=== PATIENT | female | born 1995 | race Caucasian/White ===

== ENCOUNTER → 2022-10-05 | Outpatient (CLI) | payer OTHER, SELFPAY ==
[2022-10-09 16:19] LABS: HPV Reflexed? NOT INDICATED
== END | disposition home or self-care (01) ==
LOC: LABSPEC 11:40
PROVIDERS: Visit Provider Student in an Organized Health Care Education/Training Program
DX: Z12.4 Encounter for screening for malignant neoplasm of cervix (principal)
CPT/HCPCS: 88175; G0145

== ENCOUNTER → 2022-10-16 | Outpatient (CLI) | payer OTHER, SELFPAY ==
[2022-10-16 12:46] LABS: Anion Gap 9 (5-15); BUN 11 mg/dL (7-18); BUN/Creat Ratio 13.4 RATIO (10-20); Calcium,Total 9.4 mg/dL (8.5-10.1); Chloride 105 mmol/L (98-107); Cholesterol 170 mg/dL (200); Creatinine, Serum 0.82 mg/dL (0.55-1.02); EST Glomerular Filtration Rate 90 mL/min (>60); Est Glom Filt Rate - Afr Amer 108 mL/min (>60); Glucose 95 mg/dL (74-106); High Density Lipoprotein 46 mg/dL; Potassium 3.7 mmol/L (3.5-5.1); Sodium Level 139 mmol/L (136-145); Triglycerides 141 mg/dL; Very Low Density Lipoprotein 28 mg/dL (5-40)
== END | disposition home or self-care (01) ==
LOC: MTLAB 09:39
PROVIDERS: PCP Family Medicine; Referring Provider Family Medicine; Visit Provider Family Medicine
DX: Z00.00 Encounter for general adult medical examination without abnormal findings (principal)
CPT/HCPCS: 36415; 80048; 80061

== ENCOUNTER → 2023-08-03 | Outpatient (CLI) | payer OTHER, SELFPAY ==
--- NOTE | 2023-08-03 12:06 | RAD_ITS ---
STUDY: X-RAY - LEFT SHOULDER REASON FOR EXAM: Female, 28 years old. Shoulder pain. Follow-up TECHNIQUE: view(s) of the shoulder. COMPARISON: None. FINDINGS: Normal glenohumeral articulation. Normal acromioclavicular joint. Normal acromion. Normal humeral head and visualized proximal humerus. Normal soft tissues. Normal visualized pulmonary apex. RAD/Shoulder min 2 Views IMPRESSION: Normal x-ray examination of the shoulder. Electronically Signed: Jose Juan Davis MD at 12:44 EST ,
== END | disposition home or self-care (01) ==
PROVIDERS: PCP Family Medicine; Referring Provider Nurse Practitioner Family; Visit Provider Nurse Practitioner Family
DX: S49.90XA Unspecified injury of shoulder and upper arm, unspecified arm, initial encounter (principal)
CPT/HCPCS: 73030

== ENCOUNTER 2024-01-02 19:07 | Emergency (ER) | payer OTHER, SELFPAY ==
[2024-01-02 19:07] VITALS: BP 119/93; PULSE 53; RESP 18; TEMP 36.3; O2SAT 100; BMI 30.9
[2024-01-02] MEDS: Doxycycline 100 MG CAPSULE 200 MG PO (19:15)
--- NOTE | 2024-01-02 19:21 | EDS_ITS ---
HPI History of Present Illness Chief Complaint: Wound Informant: patient Narrative Narrative: Present for evaluation noted rash right inner thigh 1 hour prior to arrival. Has been outdoors last few days with fishing. States it itches. She has no fevers no myalgias. No known ticks seen. Prior similar symptoms: No PFSH PFSH Medical History Sinus tachycardia (08/09/17) Left shoulder pain Home Medications ?Medication ?Instructions ?Recorded ?Last Taken ?Type nadolol 20 mg tablet 20 mg PO ONCE 08/03/23 Unknown History norgestimate 0.18 mg/0.215 mg/0.25 1 tab PO DAILY #84 tabs 12/29/23 Unknown Rx mg-ethinyl estradiol 25 mcg tablet ([id number]) Allergy/AdvReac Type Severity Reaction Status Date / Time No Known Allergies Allergy Verified 12/29/23 08:34 Social History Smoking Status: Never smoker alcohol intake: current alcohol intake frequency: holidays/special occasions only substance use type: does not use caffeine: No what type of physical activity do you participate in: other details: crossfit frequency: 5-6 times per week seatbelt use: always do you feel safe at home: Yes additional social history: [facility] ED Constitutional Constitutional ED: Denies chills, fever(s) or sweats Integumentary Reports rash and wounds Neurologic Neurologic: Denies paresthesias or weakness EXAM Physical Exam Const Vital Signs: 01/02/24 19:07 Temperature 97.3 F L Temperature Source Temporal Pulse Rate 53 L Respiratory Rate 18 Blood Pressure 119/93 H Blood Pressure Mean 101 Pulse Ox 100 Oxygen Delivery Method Room Air Positive well nourished and well developed General Appearance ED: well developed and NAD HEENT Reports moist mucous membranes normocephalic and atraumatic Eyes EOMs intact bilaterally General Eye ED: Yes normal appearance of both eyes Neck General: Negative for tenderness Chest Wall Chest: Negative for tenderness Resp normal respiratory effort and normal air movement Effort and Inspection: symmetric chest movement; Negative for respiratory distress Cardio regular rate, regular rhythm and no murmurs Peripheral Pulses: pulses 2+ throughout GI normal to inspection, nondistended, normoactive bowel sounds and non-tender Palpation: Negative for guarding or rebound tenderness present Extremity General Extremety ED: Negative for edema or tenderness General Extremity: Negative for edema Neuro oriented x3 and no sensory deficits noted Sensorium / Orientation: awake and alert Skin Skin Narrative: Right lower extremity: Inner mid thigh noted target lesion rash. No indurations no fluctuance or drainage. No streaking. MDM MDM MDM Narrative Medical decision making narrative: Interventions / MDM: Differential diagnosis: Target rash Diagnosis considered but do not suspect: No clinical contact dermatitis My EKG interpretation: N/A Imaging independently reviewed and interpreted by myself: N/A External documents reviewed: N/A Test considered but not ordered:N/A ED course: Patient presenting with target lesion rash noted 1 hour prior to arrival. No systemic symptoms. Patient covered empirically for tick bites. 2 of milligrams p.o. Doxy x 1. Discussed monitoring for systemic symptoms. Outpatient follow with her PCP. Re-evaluation: stable Disposition discussed with patient/family/significant other: Patient and significant other Case discussed with consulting clinician: N/A This note was generated with [employer] dictation software. It may contain incorrect words, spelling, and punctuation that were not noted in checking the note before signing. Discharge Plan Triage Chief Complaint: Wound ED Provider: Rajan Keita Dx/Rx/DC Orders Clinical Impression: Rash, Target rash Instructions: ED Tick Bite, Antibiotic Treatment Prescriptions: No Action nadolol 20 mg tablet 20 mg PO ONCE norgestimate-ethinyl estradiol [[id number]] 0.18/0.215/0.25 mg-25 mcg tablet 1 tab PO DAILY Qty: 84 3RF Primary Care Provider: Sandip Cleary Referrals: Sandip Cleary MD [Primary Care Provider] - 1 Week Activity Restrictions/Additional Instructions: You have classic target lesion and you are outdoors. You are covered prophylactically for tick bite status post 200 mg of doxycycline. Monitor for symptoms. Follow-up with your doctor. Print Language: Mohawk Disposition Disposition: Home, Self Care
[2024-01-02 19:26] VITALS: BP 122/87; PULSE 66; RESP 18; TEMP 36.1; O2SAT 99
[2024-01-05 17:07] LABS: Lyme Scn Total Ab w/Rflx Negative (Negative)
== END 2024-01-02 19:30 | disposition home or self-care (01) ==
LOC: ED 19:30
PROVIDERS: Emergency Medicine; Emergency Provider Emergency Medicine; PCP Family Medicine; Visit Provider Emergency Medicine
DX: R21 Rash and other nonspecific skin eruption (principal)
CPT/HCPCS: 86618; 99282

== ENCOUNTER → 2025-03-09 | Outpatient (CLI) | payer BC, SELFPAY ==
[2025-03-12 21:07] LABS: Chlamydia By Nucleic Acid AMP Negative (Negative); Gonococcus By Nucleic Acid AMP Negative (Negative)
== END | disposition home or self-care (01) ==
LOC: LABSPEC 13:57
PROVIDERS: PCP Family Medicine; Referring Provider Obstetrics & Gynecology; Visit Provider Obstetrics & Gynecology
DX: O09.90 Supervision of high risk pregnancy, unspecified, unspecified trimester (principal); Z3A.00 Weeks of gestation of pregnancy not specified
CPT/HCPCS: 87086; 87088; 87491; 87591

== ENCOUNTER → 2025-04-06 | Outpatient (CLI) | payer BC, SELFPAY ==
[2025-04-06 12:16] LABS: Hematocrit 36.8 % (37-47); Hemoglobin 13.1 g/dL (12.0-15.0); Immature Granulocytes Count 0.020 X10^3/uL (0.0-0.0); Mean Corp Hgb Conc 35.6 g/dL (32-36); Mean Corpuscular Volume 85.0 fL (81-99); Mean Platelet Vol. 9.8 fl (6.2-12.0); NRBC Flagged by Analyzer 0 % (0-5); Platelet Count 186 K/mm3 (150-450); RBC Distribution Width CV 11.9 % (11.6-14.6); RBC Distribution Width SD 37.2 fl (35.1-43.9); Red Blood Count 4.33 M/mm3 (4.2-5.4); White Blood Count 7.4 K/mm3 (4.4-11.0)
[2025-04-06 14:02] LABS: HIV Nonreactive (Nonreactive); Hepatitis B Surface Antigen Nonreactive (Nonreactive); Hepatitis C Antibody Nonreactive (Nonreactive); Syphilis Antibodies Nonreactive (Nonreactive)
== END | disposition home or self-care (01) ==
PROVIDERS: Obstetrics & Gynecology; PCP Family Medicine; Visit Provider Advanced Practice Midwife
DX: O09.90 Supervision of high risk pregnancy, unspecified, unspecified trimester (principal); Z3A.00 Weeks of gestation of pregnancy not specified; O99.210 Obesity complicating pregnancy, unspecified trimester
CPT/HCPCS: 36415; 83036; 85025; 86703; 86762; 86780; 86803; 86850; 86900; 86901; 87340

== ENCOUNTER 2025-06-01 12:10 | Outpatient (CLI) | payer BC, SELFPAY ==
--- NOTE | 2025-06-01 12:19 | US_ITS ---
PROCEDURE: OB ANATOMY W/ TRANSVAGINAL 06/01/2025 REASON FOR EXAM: ANATOMY TECHNIQUE: Procedure Code: [id number] Modality: US Procedure: OB ANATOMY W/ TRANSVAGINAL COMPARISON: None FINDINGS Number: 1 Position: Vertex Placental Position: Posterior and not low-lying Placental Abnormalities: No evidence of previa. DIMENSIONS: Biparietal Diameter: 5 cm: 21 weeks and 2 days: 64 percentile/ Head Circumference: 19 cm: 21 weeks and 2 days: 60 percentile/ Abdominal Circumference: 16.3 cm: 21 weeks and 3 days/61 percentile Femur Length: 3.4 cm: 20 weeks and 4 days: 33rd percentile./ ESTIMATED WEIGHT: 3099 g plus/-60 g ESTIMATED WEIGHT PERCENTILE (24+ weeks): 58 ESTIMATED GESTATIONAL AGE: Baseline: 20 weeks and 6 days By Ultrasound: 21 weeks and 0 days ESTIMATED DATE OF DELIVERY: Baseline: October 13, 2025 By Ultrasound: October 12, 2025 BIOPHYSICAL ASSESSMENT: Amniotic Fluid Volume: 3.0 cm Amniotic Fluid Index: Within normal limits. (8-24 cm normal range) Cardiac Motion: 160 beats per minute (average) Trunk and Limb Motion: Present. MATERNAL ANATOMY: Adnexa: Neither maternal ovary is successfully identified. Cervical Length (if measured): 5.3 cm ANATOMY: Spine: Unremarkable Cranium: Unremarkable Cerebellum: Unremarkable Cisterna Magna: Unremarkable Cavum Septum Pellucidi: Unremarkable Lateral Ventricles: Unremarkable Choroid Plexus: Unremarkable Midline Falx: Unremarkable Nuchal Fold: Unremarkable Upper Lip: Unremarkable Heart: Unremarkable Ventricular Outflow Tracts: Unremarkable Stomach: Unremarkable Kidneys: Unremarkable Bladder: Unremarkable Umbilical Cord: Unremarkable Extremities: Unremarkable US/OB Anatomy w/ Transvaginal IMPRESSION: Single live intrauterine gestation with a mean gestational age of 21 weeks and 0 days. Reading Location: [facility]
[2025-06-01 15:52] LABS: Hematocrit 35.0 % (37-47); Hemoglobin 12.1 g/dL (12.0-15.0); Immature Granulocytes Count 0.030 X10^3/uL (0.0-0.0); Mean Corp Hgb Conc 34.6 g/dL (32-36); Mean Corpuscular Volume 88.4 fL (81-99); Mean Platelet Vol. 10.4 fl (6.2-12.0); NRBC Flagged by Analyzer 0 % (0-5); Platelet Count 222 K/mm3 (150-450); RBC Distribution Width CV 13.3 % (11.6-14.6); RBC Distribution Width SD 43.0 fl (35.1-43.9); Red Blood Count 3.96 M/mm3 (4.2-5.4); White Blood Count 8.5 K/mm3 (4.4-11.0)
[2025-06-01 16:29] LABS: Anion Gap 10 (5-15); BUN 8 mg/dL (4-19); BUN/Creat Ratio 13.6 RATIO (10-20); Calcium,Total 9.5 mg/dL (7.6-11.0); Carbon Dioxide 21.9 mmol/L (21.0-32.0); Chloride 106 mmol/L (98-108); Glucose 105 mg/dL (70-99); Magnesium 1.9 mg/dL (1.5-2.2); Potassium 3.7 mmol/L (3.3-5.1)
== END 2025-06-01 23:59 | disposition home or self-care (01) ==
PROVIDERS: Obstetrics & Gynecology; PCP Family Medicine; Referring Provider Obstetrics & Gynecology; Visit Provider Obstetrics & Gynecology
DX: O09.92 Supervision of high risk pregnancy, unspecified, second trimester (principal); O26.892 Other specified pregnancy related conditions, second trimester; R25.3 Fasciculation; Z3A.21 21 weeks gestation of pregnancy
CPT/HCPCS: 36415; 76805; 76817; 80048; 83735; 85025

== ENCOUNTER → 2025-07-27 | Outpatient (CLI) | payer OTHER, SELFPAY ==
[2025-07-27 09:22] LABS: Hematocrit 35.1 % (37-47); Hemoglobin 11.9 g/dL (12.0-15.0); Immature Granulocytes Count 0.030 X10^3/uL (0.0-0.0); Mean Corp Hgb Conc 33.9 g/dL (32-36); Mean Corpuscular Volume 89.8 fL (81-99); Mean Platelet Vol. 10.3 fl (6.2-12.0); NRBC Flagged by Analyzer 0 % (0-5); Platelet Count 226 K/mm3 (150-450); RBC Distribution Width CV 12.5 % (11.6-14.6); RBC Distribution Width SD 40.9 fl (35.1-43.9); Red Blood Count 3.91 M/mm3 (4.2-5.4); White Blood Count 10.0 K/mm3 (4.4-11.0)
--- OUTSIDE RECORDS SUMMARY | 2025-07-27 09:30 | XMS RPT_ITS | CCD ---
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 ures 2.5 cm and consistent with LMP. Unsure about NIPT. wants to checke with insurance first. 04/06/25 -???-???-???-???-???- ???-???-???-???-???-? ??-???- 12w 6d 190 lb 9 oz (-7 oz) 117/77 Negative -???-???-???-???-???- ???-???-???-???-???-? ??-???- Negative 174 -???-???-???-???-???- ???-???-???-???-???-? ??-???- KW- no vb/cr amping. NOB labs today. US ordered. 05/02/25 -???-???-???-???-???- ???-???-???-???-???-? ??-???- 16w 4d 191 lb 8 oz (+8 oz) 115/76 Negative -???-???-???-???-???- ???-???-???-???-???-? ??-???- Negative 165 -???-???-???-???-???- ???-???-???-???-???-? ??-???- JV- patient is experiencing more tachycardia. was (more content not included)... Normal [facility] Absolute lymphocyte countOrd ered By: Laura Tomas on 04-06-2025 Lymphocytes Auto (Unsp spec) [#/Vol] 1.21 10*3/uL 0.83-4.51 [facility] Absolute neutrophil countOrd ered By: Laura Tomas on 04-06-2025 Neutrophils (Bld) [#/Vol] 5.6 10*3/uL 2.0-7.7 [facility] Automated lymphocyte count a s percentage of total leukocytesOrdered By: Laura Tomas on 04-06-2025 Lymphocytes/100 WBC Auto (Unsp spec) 16.3 % Low 19-41 [facility] Basophil percentageOrdered B y: Laura Tomas on 04-06-2025 Basophils/100 WBC (Bld) 0.5 % 0-1 [facility] CBC W/Diff, Automatedon 08-2 -2024 Absolute Lymph 1.21 X10 3/uL Normal 0.83-4.51 [facility] Comment on above: Performed By: #### L 501.9985, L3890.6006, L3890.6102, BTS, L509.4006, L100.0100, L509.8002, L3890.6301 #### [facility] [address] [place], [address] Absolute Neut 5.6 X10 3/uL Normal 2.0-7.7 [facility] Comment on above: Performed By: #### L 501.9985, L3890.6006, L3890.6102, BTS, L509.4006, L100.0100, L509.8002, L3890.6301 #### [facility] [address] [place], [address] Basophils/100 WBC (Bld) 0.5 % Normal 0-1 [facility] Comment on above: Performed By: #### L 501.9985, L3890.6006, L3890.6102, BTS, L509.4006, L100.0100, L509.8002, L3890.6301 #### [facility] [address] [place], [address] Eosinophils/100 WBC (Bld) 1.8 % Normal 0-5 [facility] Comment on above: Performed By: #### L 501.9985, L3890.6006, L3890.6102, BTS, L509.4006, L100.0100, L509.8002, L3890.6301 #### [facility] [address] [place], [address] Erythrocyte distribution width (RBC) [Ratio] 11.9 % Normal 11.6-14.6 [facility] Comment on above: Performed By: #### L 501.9985, L3890.6006, L3890.6102, BTS, L509.4006, L100.0100, L509.8002, L3890.6301 #### [facility] [address] [place], [address] Hematocrit (Bld) [Volume fraction] 36.8 % Low 37-47 [facility] Comment on above: Performed By: #### L 501.9985, L3890.6006, L3890.6102, BTS, L509.4006, L100.0100, L509.8002, L3890.6301 #### [facility] [address] [facility] [place], [address] Hemoglobin (Bld) [Mass/Vol] 13.1 g/dL Normal 12.0-15.0 [facility] Comment on above: Performed By: #### L 501.9985, L3890.6006, L3890.6102, BTS, L509.4006, L100.0100, L509.8002, L3890.6301 #### [facility] [address] [facility] [place], [address] IG% 0.300 Normal 0.0-0.9 [facility] Comment on above: Result Comment: IG% - Immature Granulocytes (promyelocytes, myelocytes and metamyelocytes) > 1% indicates that a LEFT SHIFT is Present. Performed By: #### L 501.9985, L3890.6006, L3890.6102, BTS, L509.4006, L100.0100, L509.8002, L3890.6301 #### [facility] [address] [facility] [place], [address] Lymphocytes/100 WBC (Bld) 16.3 % Low 19-41 [facility] Comment on above: Performed By: #### L 501.9985, L3890.6006, L3890.6102, BTS, L509.4006, L100.0100, L509.8002, L3890.6301 #### [facility] [address] [place], [address] MCH (RBC) [Entitic mass] 30.3 pg Normal 27.0-32.0 [facility] Comment on above: Performed By: #### L 501.9985, L3890.6006, L3890.6102, BTS, L509.4006, L100.0100, L509.8002, L3890.6301 #### [facility] [address] [place], [address] MCHC (RBC) [Mass/Vol] 35.6 g/dL Normal 32-36 [facility] Comment on above: Performed By: #### L 501.9985, L3890.6006, L3890.6102, BTS, L509.4006, L100.0100, L509.8002, L3890.6301 #### [facility] [address] [place], [address] MCV (RBC) [Entitic vol] 85.0 fL Normal 81-99 [facility] Comment on above: Performed By: #### L 501.9985, L3890.6006, L3890.6102, BTS, L509.4006, L100.0100, L509.8002, L3890.6301 #### [facility] [address] [place], [address] Monocytes/100 WBC (Bld) 6.1 % Normal 0-10 [facility] Comment on above: Performed By: #### L 501.9985, L3890.6006, L3890.6102, BTS, L509.4006, L100.0100, L509.8002, L3890.6301 #### [facility] [address] [place], [address] Neutrophils/100 WBC (Bld) 75.0 % High 47-70 [facility] Comment on above: Performed By: #### L 501.9985, L3890.6006, L3890.6102, BTS, L509.4006, L100.0100, L509.8002, L3890.6301 #### [facility] [address] [place], [address] Nucleated RBC (Bld) [#/Vol] 0 10*3/uL Normal 0-5 [facility] Comment on above: Performed By: #### L 501.9985, L3890.6006, L3890.6102, BTS, L509.4006, L100.0100, L509.8002, L3890.6301 #### [facility] [address] [place], [address] Platelet mean volume (Bld) [Entitic vol] 9.8 fL Normal 6.2-12.0 [facility] Comment on above: Performed By: #### L 501.9985, L3890.6006, L3890.6102, BTS, L509.4006, L100.0100, L509.8002, L3890.6301 #### [facility] [address] [place], [address] Platelets (Bld) [#/Vol] 186 10*3/uL Normal 150-450 [facility] Comment on above: Performed By: #### L 501.9985, L3890.6006, L3890.6102, BTS, L509.4006, L100.0100, L509.8002, L3890.6301 #### [facility] [address] [place], [address] RBC (Bld) [#/Vol] 4.33 10*6/uL Normal 4.2-5.4 [facility] Comment on above: Performed By: #### L 501.9985, L3890.6006, L3890.6102, BTS, L509.4006, L100.0100, L509.8002, L3890.6301 #### [facility] [address] [place], [place], [id number] (522) RDW SD 37.2 fl Normal 35.1-43.9 [facility] Comment on above: Performed By: #### L 501.9985, L3890.6006, L3890.6102, BTS, L509.4006, L100.0100, L509.8002, L3890.6301 #### [facility] [address] [place], [address] WBC (Bld) [#/Vol] 7.4 10*3/uL Normal 4.4-11.0 [facility] Comment on above: Performed By: #### L 501.9985, L3890.6006, L3890.6102, BTS, L509.4006, L100.0100, L509.8002, L3890.6301 #### [facility] [address] [place], [place], [id number] Eosinophil percentageOrdered By: Laura Marin on 04-06-2025 Eosinophils/100 WBC (Bld) 1.8 % 0-5 [facility] Erythrocyte distribution wid th ratioOrdered By: Laura Marin on 04-06-2025 Erythrocyte distribution width (RBC) [Ratio] 11.9 % 11.6-14.6 [facility] Erythrocyte distribution wid th standard deviationOrdered By: Laura Marin on 04-06-2025 Erythrocyte distribution width (RBC) [Ratio] 37.2 fl 35.1-43.9 [facility] HIVon 04-06-2025 HIV Non-Reactive Normal Nonreactive [facility] Comment on above: Result Comment: Non- Reactive Reactive Repeatedly reactive samples must be confirmed according to CDC recommended confirmatory algorithms. The subresults for either HIVAG or AHIV can be used as an aid in the selection of the confirmation algorithm for reactive samples. Send out specimens with Reactive results to [facility] for confirmation. Order the HIV antibody detection and differentiation: lc#[id number] Performed By: #### L 501.9985, L3890.6006, L3890.6102, BTS, L509.4006, L100.0100, L509.8002, L3890.6301 ####[facility] [address] [place], [place], [id number] Hematocrit Auto (Bld) [Volum e fraction]Ordered By: Laura Marin on 04-06-2025 Hematocrit (Bld) [Volume fraction] 36.8 % Low 37-47 [facility] Hemoglobin A1con 04-06-2025 HbA1c (Bld) [Mass fraction] 5.1 % Normal <=5.6 [facility] Comment on above: Result Comment: Norm al < 5.7 % Prediabetic 5.7 - 6.4 % Diabetic >or= 6.5 % Please note range changes. Performed By: #### L 501.9985, L3890.6006, L3890.6102, BTS, L509.4006, L100.0100, L509.8002, L3890.6301 #### [facility] [address] [place], [place], [id number] Hemoglobin A1c percentageOrd ered By: Laura Marin on 04-06-2025 HbA1c (Bld) [Mass fraction] 5.1 % <5.7 [facility] Comment on above: Normal < 5.7 % Predi abetic 5.7 - 6.4 % Diabetic >or= 6.5 % Please note range changes. Hemoglobin measurementOrdere d By: Laura Marin on 04-06-2025 Hemoglobin (Bld) [Mass/Vol] 13.1 g/dL 12.0-15.0 [facility] Hepatitis C Antibodyon 04-06 Hepatitis C Ab Non-Reactive Normal Nonreactive [facility] Comment on above: Result Comment: Reac tive: Presumptive evidence of antibodies to HCV. Follow CDC recommendations for supplemental testing. Non-Reactive: Antibodies to HCV were not detected; does not exclude the possibility of exposure to HCV Reactive Results are presumptive evidence of antibodies to HCV. Follow CDC recommendations for supplemental testing. Order confirmation testing: HCV Quant by PCR testing - HCVPCR lc#[id number] Non Reactive: < 0.8 Equivocal: >/= 0.8 to < 1.0 Reactive: >/= 1.0 The CDC requires that a reactive/equivocal HCV antibody result be sent out for confirmation. HCV Quant by PCR testing. Performed By: #### L 501.9985, L3890.6006, L3890.6102, BTS, L509.4006, L100.0100, L509.8002, L3890.6301 ####[facility] [address] [place], [place], [id number] Immature granulocytes/100 WB C Auto (Bld)Ordered By: Laura Marin on 04-06-2025 Immature granulocytes/100 WBC (Bld) 0.300 % 0.0-0.9 [facility] Comment on above: IG% - Immature Granu locytes (promyelocytes, myelocytes and metamyelocytes) > 1% indicates that a LEFT SHIFT is Present. L3890.6102on 04-06-2025 HEP B Surf Ag Non-Reactive Normal Nonreactive [facility] Comment on above: Result Comment: Reac tive: Presumptive evidence of HBV. Repeatedly reactive samples must be confirmed using a neutralization test ([employer] HBsAg Confirmatory Test) Non-Reactive: HBsAg not detected; does not exclude the possibility of exposure to HBV Performed By: #### L 501.9985, L3890.6006, L3890.6102, BTS, L509.4006, L100.0100, L509.8002, L3890.6301 ####[facility] [address] [place], [place], [id number] L509.4006on 04-06-2025 Rubella IgG REAC Normal Nonreactive [facility] Comment on above: Result Comment: Anti body Result: Interpretation Non-Reactive: Non-Immune Reactive: Immune The following results were obtained with the [employer] Rubella IgG assay. Results from assays of other manufacturers cannot be used interchangeably. Performed By: #### L 501.9985, L3890.6006, L3890.6102, BTS, L509.4006, L100.0100, L509.8002, L3890.6301 #### [facility] [address] [place], [address] Laboratory - Chemistry and C hemistry - challengeOrdered By: Kathy Morgan on 04-06-2025 Glucose Ql (U) Negative [facility] Laboratory - Microbiology an d Antimicrobial susceptibilityOrdered By: Laura Marin on 04-06-2025 HBV surface Ag Ql (S) Non-Reactive Nonreactive [facility] Comment on above: Reactive: Presumptiv e evidence of HBV. Repeatedly reactive samples must be confirmed using a neutralization test ([employer] [place] [place] HBsAg Confirmatory Test)Non-Reactive: HBsAg not detected; does not exclude the possibility of exposure to HBV Laboratory - UrinalysisOrder ed By: Kathy Morgan on 04-06-2025 Protein Ql (U) Negative [facility] MCV (mean corpuscular volume ) determinationOrdered By: Laura Marin on 04-06-2025 MCV (RBC) [Entitic vol] 85.0 fL 81-99 [facility] Mean corpuscular hemoglobin (MCH) determinationOrdered By: Laura Marin on 04-06-2025 MCH (RBC) [Entitic mass] 30.3 pg 27.0-32.0 [facility] Mean corpuscular hemoglobin concentration (MCHC) determinationOrdered By: Laura Marin on 04-06-2025 MCHC (RBC) [Mass/Vol] 35.6 g/dL 32-36 [facility] Mean platelet volume determi nationOrdered By: Laura Marin on 04-06-2025 Platelet mean volume (Bld) [Entitic vol] 9.8 fL 6.2-12.0 [facility] Monocyte percentageOrdered B y: Laura Marin on 04-06-2025 Monocytes/100 WBC (Bld) 6.1 % 0-10 [facility] Neutrophil percentageOrdered By: Laura Marin on 04-06-2025 Neutrophils/100 WBC (Bld) 75.0 % High 47-70 [facility] No Panel InformationOrdered By: Laura Marin on 04-06-2025 HIV (1&2) Antibody Non-Reactive Nonreactive [facility] Comment on above: Non-ReactiveReactive Repeatedly reactive samples must be confirmed according to CDC recommended confirmatory algorithms. The subresults for either HIVAG or AHIV can be used as an aid in the selection of the confirmation algorithm for reactive samples.Send out specimens with Reactive results to [facility] for confirmation.Order the HIV antibody detection and differentiation: #[id number] Nucleated red blood cell per centageOrdered By: Laura Marin on 04-06-2025 Nucleated RBC/100 WBC (Bld) [Ratio] 0 % 0-5 [facility] Resident Services Manager Office Visit Reporton 04-06-2025 Resident Services Manager Office Visit Report [facility] [address], [address] [place] [address] OFFICE VISIT Date of Service: 04/06/25 MR#: [id number] Acct: [id number] Name: YUNIEL METZ Rep #: [id number] : 1995 Provider: TOYA Jorge ams Age/Sex: 29/F [place] [facility] [place]: Signed Intake Vital Signs 02/14/25 09:21 03/09/25 11:02 04/06/25 11:37 Height 5 ft 5 in 5 ft 5 in 5 ft 5 in Weight: 190 lb 9 oz BMI 31.7 BP 117/77 Intake Visit Reasons: 13wk ob Chief Complaint: 13wk 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 Is patient in pain?: No Allergies No Known Allergies Allergy (Verified 04/06/25 11:38) Medications ???Medication ???Instructions ???Recorded ???Confirmed ???Type labetalol 200 mg tablet 200 mg PO BID 01/03/25 04/06/25 Hi story docosahexaenoic acid 200 mg mg PO 02/23/25 04/06/25 History capsule ( DHA) Last Menstrual Period: 01/06/25 : No PFSH PFSH Medical History Sinus tachycardia (08/09/17) Surgical History History of ankle surgery Family History Aunt Brain cancer Grandfather Myocardial infarction Grandfather Diabetes Social History adopted: No household members: spouse number of children: 0 current occupational status: employed current occupation: [employer] 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 ) pets and animals: Yes pets and animals: dog(s) history of recent travel: Yes ( - December 2024) out of state: No out of country: Yes sexually active: Yes Smoking Status: Never smoker second hand exposure: No alcohol intake: current alcohol intake frequency: holidays/special occasions only details: Not while substance use type: does not use well-balanced diet: daily or most days caffeine: No eating out: 1-3 times/week during the past year weight has: remained stable what type of physical activity do you participate in: walking, bicycling and other details: Crossfit frequency: 5-6 times per week duration: 45-60 minutes/day jeramie/restoration: None seatbelt use: always do you feel safe at home: Yes additional social history: : Lucía - [place] History 1 Elective abortions 0 Hx Para 0 Spontaneous abortions 0 Hx # Term Pregnancies Ectopic pregnancies Hx # Pregnancies Multiple births # of living children HPI 13wk ob Details: YUNIEL METZ is a 29 year old who presents for routine OB visit. OB Visit JERRICA Calculator Estimated Delivery Date Method Current WG Current Estimate 10/13/25 LMP (Certain) 12w 6d Other Estimates 10/12/25 Ultrasound #1 13w 0d Expected Delivery Route/Plan Labor Preferences- CB/BF classes: [] labor support person: [] labor intervention preferences: [] pain management options preferred: [] cut cord/dad catch: [] : [] PP control planned: [] discussed possible routes of delivery and associated risks: [] special requests: [] Specific Issue/Plans Covid status: [] Flu vaccine: [] Tdap vaccine: [] Rhogam: [] LARC form signed: [] Problem list reviewed and updated with the most current plan of care details and appropriate orders placed. Relevant counseling for the gestational age provided. Continue routine care and follow up unless otherwise noted in visit notes/problem list details Initial Weight: 191 lb Date -???-???-???-???-???- ???-???-???-???-???-? ??-???- EGA Weight BP Urine Prot -???-???-???-???-???- ???-???-???-???-???-? ??-???- Glucose FHR FuHt Pres Dilation -???-???-???-???-???- ???-???-???-???-???-? ??-???- Effaced St Visit Note 03/09/25 -???-???-???-???-???- ???-???-???-???-???-? ??-???- 8w 6d 191 lb (+0 oz) 127/80 -???-???-???-???-???- ???-???-???-???-???-? ??-???- 180 -???-???-???-???-???- ???-???-???-???-???-? ??-???- JV- CRL david ures 2.5 cm and consistent with LMP. Unsure about NIPT. wants to checke with insurance first. 04/06/25 -???-???-???-???-???- ???-???-???-???-???-? ??-???- 12w 6d 190 lb 9 oz (-7 oz) 117/77 Negative -???-???-???-???-???- ???-???-???-???-???-? ??-???- Negative 174 -???-???-???-???-???- ???-???-???-???-???-? ??-???- KW- no vb/cr amping. NOB labs today. US ordered. ACOG First Trimester First Trimester: Desire for , Alcohol, Tobacco Cessation, Illicit/Recreational Drug/Substance Use, Intimate Partner Violence, Barriers to care, Unstable Housing, Communication Barriers, Environmental/Work Hazards, Anticipated Course of Care, Toxoplasmosis Precations, Use of Any medications, Sexual activity, Exercise, Dental Care (more content not included)... Normal [facility] Platelet countOrdered By: Logan Marin on 04-06-2025 Platelets (Bld) [#/Vol] 186 10*3/uL 150-450 [facility] RBC Auto (Bld) [#/Vol]Ordere d By: Laura Marin on 04-06-2025 RBC (Bld) [#/Vol] 4.33 10*6/uL 4.2-5.4 [facility] Syphilis Antibodieson 2024 Syphilis Abs Non-Reactive Normal Nonreactive [facility] Comment on above: Performed By: #### L 501.9985, L3890.6006, L3890.6102, BTS, L509.4006, L100.0100, L509.8002, L3890.6301 #### [facility] [address] [place], [address] Type AND Screenon 04-06-2025 Ab SCREEN GEL Negative Normal [facility] Comment on above: Order Comment: PN Performed By: #### L 501.9985, L3890.6006, L3890.6102, BTS, L509.4006, L100.0100, L509.8002, L3890.6301 ####[facility] [address] [place], [place], [id number] ABO and Rh group Nom (Bld) Blood group O Rh(D) positive Normal [facility] Comment on above: Order Comment: PN Performed By: #### L 501.9985, L3890.6006, L3890.6102, BTS, L509.4006, L100.0100, L509.8002, L3890.6301 ####[facility] [address] [place], [address] White blood cell (WBC) count Ordered By: Laura Marin on 04-06-2025 WBC (Bld) [#/Vol] 7.4 10*3/uL 4.4-11.0 [facility] Chlamydia/GC JOSE aptimaon CHLAMY,NUC ACID Negative Normal Negative [facility] Comment on above: Performed By: #### M 100.2200, L7000.1800 #### [facility] [address] [place], [address] GC BY NUC ACID Negative Normal Negative [facility] Comment on above: Result Comment: Perf ormed at: =G - [facility] [address] [id number] Emergency Medical Services Coordinator: Elsa Cat MD, Phone: [phone] Performed By: #### M 100.2200, L7000.1800 #### [facility] [address] [place], [address] Urine Cultureon 03-12-2025 URC Below infection level. Mixed Gram Positive Organisms [place] Count <1000 MIXC Mixed contaminants. Submit a new specimen if indicated. Normal [facility] Comment on above: Performed By: #### M 100.2200, L7000.1800 #### [facility] [address] [place], [address] Chlamydia trachomatis rRNA d etection by probe and target amplification methodOrdered By: Laura Marin on 03-09-2025 C. trachomatis rRNA JOSE+probe Ql (Unsp spec) Negative Negative [facility] Neisseria gonorrhoeae nuclei c acid detection by amplified probe techniqueOrdered By: Laura Marin on 03-09-2025 N. gonorrhoeae DNA JOSE+probe Ql (Unsp spec) Negative Negative [facility] Comment on above: Performed at: =[facility] [id number] [place] [id number] Director: Elsa Cat MD, Phone: [phone] Resident Services Manager Office Visit Reporton 03-09-2025 Resident Services Manager Office Visit Report [facility]'s [address], [address] [place] [address] OFFICE VISIT Date of Service: 03/09/25 MR#: [id number] Acct: [id number] Name: YUNIEL METZ Rep #: [id number] : 1995 Provider: Dr. 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 Is patient in pain?: No Allergies No Known Allergies Allergy (Verified 03/09/25 11:00) Medications ???Medication ???Instructions ???Recorded ???Confirmed ???Type labetalol 200 mg tablet 200 mg PO BID 01/03/25 03/09/25 Hi story docosahexaenoic acid 200 mg mg PO 02/23/25 03/09/25 History capsule ( DHA) Last Menstrual Period: 01/06/25 Zika: Zika virus screening: Negative : No PFSH PFSH Medical History Sinus tachycardia (08/09/17) Surgical History History of ankle surgery Family History Aunt Brain cancer Grandfather Myocardial infarction Grandfather Diabetes Social History adopted: No household members: spouse number of children: 0 current occupational status: employed 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 occupation: [employer] 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 ) pets and animals: Yes pets and animals: dog(s) history of recent travel: Yes ( - December 2024) out of state: No out of country: Yes sexually active: Yes Smoking Status: Never smoker second hand exposure: No alcohol intake: current alcohol intake frequency: holidays/special occasions only details: Not while substance use type: does not use well-balanced diet: daily or most days caffeine: No eating out: 1-3 times/week during the past year weight has: remained stable what type of physical activity do you participate in: walking, bicycling and other details: Crossfit frequency: 5-6 times per week duration: 45-60 minutes/day jeramie/restoration: None seatbelt use: always do you feel safe at home: Yes 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 The was planned, and the patient conceived shortly after discontinuing control, which she had been on since age 14. She reports mild breast tenderness and nausea primarily in the afternoons, but has not experienced vomiting. The patient is currently nine weeks , as confirmed by the last menstrual period and ultrasound measurements. She has not experienced any cramping or bleeding since the onset of . The patient has been taking vitamins and has not had a recent Pap smear, with the last one conducted in 2022. She has been advised to avoid lifting more than 27 pounds and to avoid climbing ladders due to the risk of uterine contractions and potential miscarriage. The patient has been informed about dietary precautions, including avoiding raw meats and fishes and soft cheeses due to the risk of listeria. She has also been advised on the availability of genetic testing and plans to check with her insurance regarding coverage. Attestation: Documentation on this patient encounter was supported using ambient scribe technology/ voice AI technology. The patient consented to recording for the purpose of documenting the encounter. Provider reviewed content of the generated note prior to signature. OB Visit JERRICA Calculator Estimated Delivery Date Method Current WG Current Estimate 10/13/25 LMP (Certain) 8w 6d Other Estimates 10/12/25 Ultrasound #1 9w 0d Estimated Due Date: 10/13/25 Expected Delivery Route/Plan Labor Preferences- CB/BF classes: [] labor support person: [] labor intervention preferences: [] pain management options preferred: [] cut cord/dad catch: [] : [] PP control planned: [] discussed possible routes of delivery and associated risks: [] special requests: [] Specific Issue/Plans Covid status: [] Flu vaccine: [] Tdap vaccine: [] Rhogam: [] LARC form signed: [] Problem list reviewed and updated with the most current plan of care details and (more content not included)... Normal [facility] Urine cultureOrdered By: Ekaterina Marin on 03-09-2025 Bacteria identified Cx Nom (U) Positive Abnormal [facility] Office Visit Reporton 2024 Office Visit Report [facility] [address] [place] [address] OFFICE VISIT Date of Service: 02/23/25 MR#: [id number] Acct: [id number] Patient: YUNIEL METZ Rep #: [id number] : 1995 Provider: Dr. Lauar Russ, Age/Sex: 29/F [place] [facility] [place]: Signed Intake Vital Signs 01/03/25 13:48 02/14/25 09:21 02/23/25 08:54 Height 5 ft 5 in 5 ft 5 in 5 ft 5 in Weight: 190 lb 2 oz 193 lb 8 oz BMI 31.6 32.1 BP 113/79 114/60 Intake Visit Reasons: PNOB, Comfirm Preg, Vitals Chief Complaint: Inperson PNOB Allergies No Known Allergies Allergy (Verified 02/23/25 08:16) Medications ???Medication ???Instructions ???Recorded ???Confirmed ???Type labetalol 200 mg tablet 200 mg PO BID 01/03/25 02/23/25 Hi story docosahexaenoic acid 200 mg mg PO 02/23/25 02/23/25 History capsule ( DHA) Is last menstrual period known: Yes Post menopausal: No Patient : Yes Nurse's Note: Pt here for secondary amenorrhea. Vitals WNL. PNOB questions completed. Problem list, allergies, and medications updated. First trimester ACOG education completed. Assessment and Plan Assessment and Plan Orders: Orders CBC W/Diff, Automated Today O09.90 - Supervision of high risk , unspecified, unspecified trimester Type Screen Today O09.90 - Supervision of high risk , unspecified, unspecified trimester Rubella IgG Today O09.90 - Supervision of high risk , unspecified, unspecified trimester Hepatitis C Antibody Today O09.90 - Supervision of high risk , unspecified, unspecified trimester Hepatitis B Surface Antigen Today O09.90 - Supervision of high risk , unspecified, unspecified trimester Culture, Urine Today O09.90 - Supervision of high risk , unspecified, unspecified trimester Syphilis Antibodies Today O09.90 - Supervision of high risk , unspecified, unspecified trimester Chlamydia/GC JOSE aptima Today O09.90 - Supervision of high risk , unspecified, unspecified trimester HIV Today O09.90 - Supervision of high risk , unspecified, unspecified trimester Hemoglobin A1c Today O09.90 - Supervision of high risk , unspecified, unspecified trimester, O99.210 - Obesity complicating , unspecified trimester 02/23/25 1630 Date Laura Anne Signature: Date (if applicable) CC: Normal [facility] Resident Services Manager Office Visit Reporton 01-03-2025 Resident Services Manager Office Visit Report [facility] [address], [address] [place] [address] OFFICE VISIT Date of Service: 01/03/25 MR#: [id number] Acct: [id number] Name: YUNIEL RIOS Rep #: [id number] : 1995 Provider: CORRINA Bethea Age/Sex: 29/F [place] [facility] [place]: Signed Intake Vital Signs 01/02/24 19:07 01/03/25 13:48 Height 5 ft 5 in 5 ft 5 in Weight: 190 lb 2 oz BMI 31.6 BP 113/79 Intake Visit Reasons: 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 Is patient in pain?: No Allergies No Known Allergies Allergy (Verified 01/03/25 13:48) Medications ???Medication ???Instructions ???Recorded ???Confirmed ???Type labetalol 200 mg tablet 200 mg PO BID 01/03/25 01/03/25 Hi story Post menopausal: No Patient : No : No Control Method: none PFSH Medical History Sinus tachycardia (08/09/17) Left shoulder pain Social History Smoking Status: Never smoker alcohol intake: current alcohol intake frequency: holidays/special occasions only substance use type: does not use caffeine: No what type of physical activity do you participate in: other details: crossfit frequency: 5-6 times per week seatbelt use: always do you feel safe at home: Yes additional social history: Engaged-Lucía History 0 Elective abortions Hx Para Spontaneous abortions Hx # Term Pregnancies Ectopic pregnancies Hx # Pregnancies Multiple births # of living children HPI Encounter for routine gynecological examination Details: YUNIEL RIOS is a 29 year old who presents for annual exam. She reports she is no longer taking OCP; they are trying to conceive. Went off OCP in November and got in December. Doing well otherwise. Last PAP: 2022; normal. History of abnormal PAP: no. Last mammogram: age 42 History of abnormal mammogram: n/a Colon cancer screening: age 47 Other preventative health care screenings: Sandip Bejarano; PCP. ROS Const Constitutional: Denies chills, fatigue, fever(s), headache(s) or weight loss Eyes Eyes: Denies change in vision ENT ENT: Denies dizziness Resp Resp: Denies cough GI GI: Denies abdominal pain, constipation or nausea : Denies difficulty voiding, dysuria, hematuria, nipple discharge, pelvic pain, prolapse symptoms, urinary incontinence, vaginal discharge, vaginal dryness, vaginal odor or vaginal pruritus Skin Skin/Breast: Denies alopecia, rash, breast mass, breast pain, breast skin changes or nipple discharge Neuro Neuro: Denies dizziness Psych Psych: Denies anxiety or depression Endo Endo: Denies cold intolerance, excessive sweating or heat intolerance Exam Const General: cooperative, healthy appearing, comfortable, no acute distress, well groomed and well hydrated Nutritional Appearance: well nourished Orientation: alert, awake and oriented x3 HENMT Head: normal to inspection and normocephalic Ears: hearing grossly normal bilaterally and external ears normal Nose: external nose normal Face and sinus: normal facial exam Eyes General: appearance normal, both eyes and all related structures Neck Neck: normal visual inspection, full ROM and no lymphadenopathy Thyroid: thyroid normal Chest Chest palpation inspection: normal inspection of the chest Breast inspection: normal inspection of the breasts and normal inspection of the axillae Breast palpation: normal palpation of the breasts, normal palpation of the axillae and no axillary lymphadenopathy Resp Effort Inspection: normal respiratory effort, able to speak in complete sentences and symmetric chest movement GI Inspection: normal to inspection Palpation: soft and no hepatosplenomegaly General: bladder normal to palpation External Female Exam: normal external appearance and normal appearance of the urethra Urethra: normal appearance of the urethra Speculum Exam - Vagina: normal appearance of the vagina, normal vaginal discharge, no lesions and nontender Speculum Exam - Cervix: normal appearance of the cervix, no lesions and no masses Bimanual Exam- Vagina Uterus: normal bimanual exam, uterine size normal, bladder normal to palpation, uterine mobility normal, normal palpation and non-tender Bimanual Exam- Adnexa, other: normal adnexae, no masses, normal and non-tender Pelvic Support: normal Skin General: no rashes or lesions noted Neuro General: patient alert, patient awake, patient oriented x3 and moves all extremities Psych Appearance: grossly normal Mental Status: mental status grossly normal Affect: normal affect Speech and Movement: speech and movement normal Attitude: cooperative Coding Level of Care Code Established Pt Of (more content not included)... Normal [facility] Progress Noteon 10-09-2024 Progress Note [facility] Telehealth Cardiology Note DATE of SERVICE: 10/09/24 TIME of SERVICE: 2:49 PM Chief Complaint: Chief Complaint Patient presents with Follow-up Other Inappropriate sinus tachycardia History of Present Illness: Yuniel Rios is a 29 y.o. female who presents for virtual visit to follow-up on her inappropriate sinus tachycardia. Since he got started on nadolol she has no symptoms. She states in the morning her initial heart rate is still elevated, however as soon as she takes nadolol her heart rate drops down to around 80 bpm. She is asymptomatic. However, she is planning to get and wonders whether nadolol is safe. All else is negative. Participants on telehealth call: Yuniel Rios Past Medical History: Past Medical History: Diagnosis Date Asthma Palpitations Tachycardia Past Surgical History History reviewed. No pertinent surgical history. Family History Family History Problem Relation Name Age of Onset No Known Problems Mother No Known Problems Father Brain cancer Mother's Sister Asthma Maternal Grandmother High Blood Pressure Maternal Grandmother Other ([id number]) Other Social History Social History Tobacco Use Smoking status: Never Smokeless tobacco: Never Substance Use Topics Alcohol use: Yes Drug use: No Allergies: No Known Allergies Medications: Current Outpatient Medications: Jls-Dk-Svegjecb 0.18/0.215/0.25 MG-25 MCG tablet, Take 1 tablet by mouth in the morning. as directed., Disp: 28 tablet, Rfl: 2 labetalol (Normodyne) 100 MG tablet, Take 1 tablet (100 mg) by mouth 2 times daily., Disp: 180 tablet, Rfl: 3 Review of Systems: Review of Systems Respiratory: Negative for chest tightness and shortness of breath. Cardiovascular: Negative for chest pain and palpitations. Neurological: Negative for dizziness and light-headedness. Vital Signs (self reported) Blood pressure: 132/78 mmHg Pulse: 80 bpm Laboratory Tests: No results found for: WBC, HGB, HCT, MCV, PLT No results found for: GLUCOSE, CALCIUM, NA, K, CO2, CL, BUN, CREATININE @LASTCMP@ No results found for: CHLPL, CHOL No results found for: TRIG No results found for: HDL No results found for: LDLCALC Cardiac Tests: EC07/21/23 Assessment and Plan: There are no diagnoses linked to this encounter. Diagnosis Plan 1. Inappropriate sinus tachycardia (HCC) Yuniel Rios is doing well regarding her inappropriate sinus tachycardia. It is controlled on beta-dulce maria therapy. However she is planning to get , therefore I recommended beta-dulce maria is labetalol. I will start the patient on 100 mg twice daily. I advised the patient to check her symptoms as well as her heart rate and blood pressure. If necessary the drug dose may have to be adjusted. No additional testing is recommended. I would like to reassess in 1 year. I reviewed my assessment and plan with Yuniel Rios . All questions were answered. NOTE: This report was transcribed using voice recognition software. Every effort was made to ensure accuracy; however, inadvertent computerized loft rigger errors may be present. Patient was identified and seen today via Telehealth by agreement and consent. I used the following Telehealth technology: Audio capability only. Total length of call 15 minutes. The patient was offered and advised video for a more comprehensive evaluation, but the patient declined or was unable to use video. Patient location: Patient Location: Home. This patient encounter is appropriate and reasonable under the circumstances: transportation issues . The patient has been advised of the potential risks and limitations of this mode of treatment (including but not limited to the absence of in-person examination) and has agreed to be treated in a remote fashion in spite of them. Any and all of the patient's/patient's family's questions on this issue have been answered and I have made no promises or guarantees to the patient. The patient has also been advised to contact this office for worsening conditions or problems, and seek emergency medical treatment and/or call 911 if the patient deems either necessary. The patient stated that they are currently in the [facility]. If the patient is a minor, permission has been obtained by the parent or guardian for the patient to receive medical care at this visit. Normal [facility] 36on 08-11-2024 36 SVEN 07/21/23 Normal [facility] ECG 12 lead - CLINIC PERFORM EDon 07-21-2023 Sinus Rhythm -Nonspecific T-abnormality -Nondiagnostic for age. ABNORMAL [facility] Laboratory - Microbiology an d Antimicrobial susceptibilityon 07-05-2023 SARS-CoV-2 (COVID-19) RNA JOSE+probe Ql (Unsp spec) Not detected [facility] Basophil percentageOrdered B y: Dr. Aceves on 10-16-2022 Chloride [Moles/Vol] 105 mmol/L 98-107 [facility] Cholesterol [Mass/Vol] 170 mg/dL <200 [facility] Comment on above: <200 mg/dL Desirable 200-240 mg/dL Borderline >240 mg/dL High Risk Glucose [Mass/Vol] 95 mg/dL 74-106 [facility] Potassium [Moles/Vol] 3.7 mmol/L 3.5-5.1 [facility] Sodium [Moles/Vol] 139 mmol/L 136-145 [facility] Triglyceride [Mass/Vol] 141 mg/dL <199 [facility] Comment on above: The drugs N-Acetylcy steine and Metamizole may falsely depress this assay.Serum Triglycerides Reference Interval Normal <150 mg/dL Borderline high 150 - 199 mg/dL High 200 - 499 mg/dL Very High > or = 500 mg/dL Laboratory - Chemistry and C hemistry - challengeOrdered By: Dr. Aceves on 10-16-2022 CO2 [Moles/Vol] 25.0 mmol/L 21.0-32.0 [facility] Urea nitrogen/Creatinine [Mass ratio] 13.4 mg/mg 10-20 [facility] No Panel InformationOrdered By: Dr. Aceves on 10-16-2022 Estimated GFR (MDRD) Amer 108 mL/min >60 [facility] Comment on above: GFR Calc Estimated GFR (MDRD) Non-Af Amer 90 mL/min >60 [facility] Comment on above: Non- GFR Calc Serum or plasma calcium david urement (mass/volume)Ordered By: Dr. Aceves on 10-16-2022 Calcium [Mass/Vol] 9.4 mg/dL 8.5-10.1 [facility] Serum or plasma cholesterol in HDL measurement (mass/volume)Ordered By: Dr. Aceves on 10-16-2022 Cholesterol in HDL [Mass/Vol] 46 mg/dL >40 [facility] Comment on above: The drugs N-Acetylcy steine and Metamizole may falsely depress this assay. Reference Range HDL <40 mg/dL Low HDL Cholesterol HDL >or= 60 mg/dL High HDL Cholesterol Serum or plasma cholesterol in VLDL measurement (mass/volume)Ordered By: Dr. Aceves on 10-16-2022 Cholesterol in VLDL [Mass/Vol] 28 mg/dL 5-40 [facility] Serum or plasma creatinine m easurement (mass/volume)Ordered By: Dr. Aceves on 10-16-2022 Creatinine [Mass/Vol] 0.82 mg/dL 0.55-1.02 [facility] Comment on above: The validity of the calculated GFR & GFRAA in patients over 70 years has not been determined. Clinical correlation is essential. Serum or plasma low density lipoprotein (LDL) cholesterol measurement (mass/volume)Ordered By: Dr. Aceves on 10-16-2022 Cholesterol in LDL [Mass/Vol] 96 mg/dL 0-130 [facility] Serum or plasma urea nitroge n measurement (mass/volume)Ordered By: Dr. Aceves on 10-16-2022 Urea nitrogen [Mass/Vol] 11 mg/dL 7-18 [facility] Thin prep Papanicolaou smear with manual screeningOrdered By: Dr. Aceves on 10-16-2022 Thin prep Papanicolaou smear with manual screening 9 5-15 [facility] Cervical or vagninal specime n microscopic examination by cytology stain (reported asOrdered By: Dr. Ortega on 10-05-2022 Cytology report Cyto stain Doc (Cvx/Vag) Comment . [facility] Comment on above: The Pap smear is a s creening test designed to aid in thedetection of premalignant and malignant conditions of theuterine cervix. It is not a diagnostic procedure andshould not be used as the sole means of detecting cervicalcancer. Both false-positive and false-negative reports dooccur. Laboratory - CytologyOrdered By: Dr. Ortega on 10-05-2022 Construction Equipment Technician Cyto stain Nom (Cvx/Vag) [ID] Comment . [facility] Comment on above: Leticia adair, Wash Oil Pump Operator (ASCP) Laboratory - Miscellaneous t estsOrdered By: Dr. Ortega on 10-05-2022 Service comment (Unsp spec) [Interp] Comment . [facility] Comment on above: This liquid based Th inPrep(R) pap test was screened withthe use of an image guided system. Service comment (Unsp spec) [Interp] . . [facility] No Panel InformationOrdered By: Dr. Ortega on 10-05-2022 Human Papillomavirus Screen Comment . [facility] Comment on above: The HPV DNA reflex c laurieria were not met with this specimenresult therefore, no HPV testing was performed.Performed at: [address] [place] [id number] Director: Elsa Cat MD, Phone: [phone] Pathology report final diagnosis Narrative Comment . [facility] Comment on above: NEGATIVE FOR INTRAEP ITHELIAL LESION OR MALIGNANCY. CT HEAD OR BRAIN W/O CONTRAS Ton 07-07-2019 CT HEAD OR BRAIN W/O CONTRAST ORIGINAL CT HEAD OR BRAIN W/O CONTRAST TECHNIQUE: Images were obtained without contrast. This exam was performed according to our departmental dose optimization program, and includes the following measures where applicable: automated exposure control, adjustment of the mAs and/or kVp according to patient size and/or exam, and an iterative reconstruction algorithm. CLINICAL STATEMENT: pain/headache. COMPARISON: February 10, 2017 FINDINGS: No hemorrhage or mass is identified. Ventricles, sulci and cash-white junctions are preserved. The posterior fossa is unremarkable. IMPRESSION: No acute process. Interpreted By: Jose Oliveira MD Preliminary Report By: Jose Oliveira MD Electronically Signed By: Jose Oliveira MD Dictated Date: 07/07/2019 8:49:46 AM Prelim Date: 07/07/2019 8:49:46 AM Sign Date: 07/07/2019 8:50:24 AM Ordering Provider:Akiko Fu [facility] ([place]) BREAST RIGHT LIMITEDon US BREAST RIGHT LIMITED ORIGINAL FROM: [address] [address] PROCEDURE FOR: YUNIEL RIOS [address] [place] [address] Home: PID#: [id number] Exam#: [id number] : 1995 Age: 23 TO: RENETTA MONTESINOS MD [id number] [address] #[id number] LIMITED ULTRASOUND OF RIGHT BREAST: 09/29/2018 CLINICAL: PALPABLE LUMP RIGHT BREAST. No prior exams were available for comparison. Color flow and real-time ultrasound of the right breast upper aspect were performed. There is no sonographic abnormality to correspond to a reported palpable lesion. There is dense tissue in the area of palpable concern. IMPRESSION: BENIGN No significant abnormality. Clinical correlation advised. There is no sonographic evidence of malignancy. I have personally reviewed the images of the examination and agree with the findings and interpretation. JONAH SEWELL MD ab,da/:09/29/2018 08:49:10 Sheep Farm Worker(s): MEGAN SALOMON RT,RDNC, [facility] letter sent: Normal BI-RADS 1&2 Ultrasound BI-RADS: 2 Benign Normal [facility] ([place]) Echo Stress Echo w/wo Contra [facility] 08-04-2017 Echo Stress Echo w/wo Contrast Patient Name: YUNIEL RIOS Ultrasound Exam Date/Time 08/04/2017 08:32:06 EST Exam Echo Stress Echo w/wo Contrast Ordering Physician MD MONTESINOS CHRISTINA MARIE Accession Number [id number] Reason For Exam Tachycardia Report STRESS ECHOCARDIOGRAM Tung Protocol PATIENT: Yuniel Rios STUDY DATE: 08/04/2017 : 1995 AGE: 22 HT/WT: 165.1 cm (65 72.6 kg (159.7 in) lb) GENDER: F BP: LOCATION: [facility] STATUS: *ORDERING PHYSICIAN: * Renetta Montesinos *FELLOW: * Dom Manzano *SUPERVISING PHYSICIAN: * Reena Head *RN: * Annelise Yang RN *READING PHYSICIAN: * Steven, RogerioEMERGENCY MANAGEMENT PROGRAM SPECIALIST: * Sharda Bah RVT, MD [facility] --- INDICATIONS: Tachycardia (R00.00). --- HISTORY: Allergies: No known allergies. Patient is NPO per policy. No Cardiac medications. --- CONCLUSIONS SUMMARY: 1. Procedure narrative: Treadmill exercise testing was performed using the Tung protocol. The patient exercised for 10 min, to a maximal work rate of 11.7 mets. Exercise was terminated due to moderate fatigue. 2. Stress: Peak heart rate during stress was 203 bpm (102% of maximal predicted heart rate). The maximal predicted heart rate was 200 bpm.The target heart rate was achieved. The heart rate recovery at one minute is normal. The heart rate at 1 minute into recovery was 155 bpm. The heart rate response to stress was normal. Functional capacity is good. 3. Overall, study findings suggest a low risk of cardiovascular events. Normal study after maximal exercise. 4. Stress echo: Left ventricular ejection fraction was normal at rest and with stress. There is no evidence for stress-induced ischemia. 5. Stress ECG conclusions: There was no ischemic ST depression. There are no stress arrhythmias or conduction abnormalities. The stress ECG is normal. Miller scoring: exercise time of 10 min; maximum ST deviation of 0 mm; no angina; resulting score is 10. This score predicts a low risk of cardiac events. 6. Left ventricle: Systolic function is normal by the biplane method of disks. The estimated ejection fraction is 64%. --- STUDY DATA: Stress echocardiogram. Procedure: Initial setup. A baseline ECG was recorded. Surface ECG leads and blood pressure measurements were monitored. Image quality was adequate. Treadmill exercise testing was performed using the Tung protocol. The patient exercised for 10 min, to a maximal work rate of 11.7 mets. Exercise was terminated due to moderate fatigue. Post-stress images were obtained within 90 seconds of peak stress. Transthoracic stress echocardiography. Images were captured at baseline and peak exercise. Exercise was terminated when the patient's Anny scale was 17. M-mode, limited 2D, limited spectral Doppler, and color flow Doppler images were acquired and archived for permanent storage and are available for subsequent review. Study status: Routine. Patient status: Outpatient. Pre pain assessment is 0 out of 10. Post pain assessment is 0 out of 10. Location: Echo laboratory. Consent: The procedure was reviewed with the patient and the patient voices understanding. Study completion: The patient tolerated the procedure well. There were no complications. Discharge: Discharge instructions given The patient was discharged to homewhile ambulatory. ECG RHYTHM: NSR --- FINDINGS LEFT VENTRICLE: The cavity size is normal. Wall thickness is normal. Systolic function is normal by the biplane method of disks. The estimated ejection fraction is 64%. There are no regional wall motion abnormalities. RIGHT VENTRICLE: Systolic function is normal. Right ventricular systolic pressure is within the normal range. LEFT ATRIUM: Not well visualized. The atrium is normal in size. RIGHT ATRIUM: Well visualized. The atrium is normal in size. ATRIAL SEPTUM: Not well visualized. MITRAL VALVE: Not well visualized. Doppler: There is no significant regurgitation. AORTIC VALVE: Not well visualized. Normal thickness leaflets. Doppler: There is no stenosis. There is no significant regurgitation. TRICUSPID VALVE: Not well visualized. Doppler: There is no significant regurgitation. PULMONIC VALVE: Not well visualized. Doppler: There is no evidence for stenosis. There is no significant regurgitation. AORTA: The aorta is not visualized. PERICARDIUM: There is no pericardial effusion. BASELINE ECG: Normal sinus rhythm. STRESS PROTOCOL: + +---+-- + ------+ !Stage !HR !BP (mmHg) !Symptoms ! + +---+-- + ------+ !Rest !75 !126/80 (95) !None ! + +---+-- + ------+ !Peak stress !203!190/80 (117)!Moderate fatigue! + +---+-- + ------+ !Recovery !155!160/70 (100)!Subsiding ! + +---+-- + ------+ !Late recovery!116!140/80 (100)!None ! + +---+-- + ------+ STRESS RESULTS: Peak heart rate during stress was 203 bpm (102% of maximal predicted heart rate). The maximal predicted heart rate was 200 bpm.The target heart rate was achieved. The heart rate recovery at one minute is normal. The heart rate at 1 minute into recovery was 155 bpm. The heart rate response to stress was normal. There is a normal resting blood pressure with an appropriate response to stress. The rate-pressure product for the peak heart rate and blood pressure was 22200 mm Hg/min. The patient experienced no chest pain during stress. Functional capacity is good. STRESS ECG: There was no ischemic ST depression. There are no stress arrhythmias or conduction abnormalities. The stress ECG is normal. Miller scoring: exercise time of 10 min; maximum ST deviation of 0 mm; no angina; resulting score is 10. This score predicts a low risk of cardiac events. Upsloping ST depression: 1 mm. No stress induced ECG changes suggestive of ischemia. Baseline: LV size is normal. LV global systolic function is normal. Normal wall motion; no LV regional wall motion abnormalities. Wall motion score: 1.00. Peak stress: LV size is normal and appropriately decreased from baseline. LV global systolic function is hyperdynamic. Normal wall motion; no LV regional wall motion abnormalities. No evidence for new LV regional wall motion abnormalities. Wall motion score: 1.00. STRESS ECHO RESULTS: Left ventricular ejection fraction was normal at rest and with stress. There is no evidence for stress-induced ischemia. --- Measurements Left ventricle Value Reference LV ID, ED 4.9 cm 3.9 - 5.3 LV ID, ES 3.2 cm --------- LV PW thickness, ED 0.7 cm 0.6 - 0.9 LV end-diastolic volume, 1-p A4C 65 ml 56 - 104 LV end-systolic volume, 1-p A4C (L) 17 ml 19 - 49 LV end-diastolic volume, 2-p 63 ml 56 - 104 LV end-systolic volume, 2-p 23 ml 19 - 49 LV ejection fraction, 2-p 64 % >=55 Ventricular septum Value Reference IVS thickness, ED 0.7 cm 0.6 - 0.9 Legend: (L) and (H) nathan values outside specified reference range. Electronically signed by Sharda Harris MD 08/04/2017 13:58 Final Dictated: 08/04/2017 1:58 pm Dictating Physician: NIEDERMAIER, OTFRIED Signed Date and Time: 08/04/2017 1:58 pm Signed by: SHARDA HARRIS Normal [facility] ED Note-Provideron 7 ED Note-Provider Normal [facility] CT HEAD OR BRAIN W/O CONTRAS Ton 02-10-2017 CT HEAD OR BRAIN W/O CONTRAST ORIGINALCT HEAD OR BRAIN W/O CONTRAST CLINICAL STATEMENT: INJURY TECHNIQUE: Axial CT images from skull base to vertex without IV contrast. This exam was performed according to our departmental dose optimization program, and includes the following measures where applicable: automated exposure control, adjustment of the mAs and/or kVp according to patient size and/or exam, and an iterative reconstruction algorithm. COMPARISON: None. FINDINGS: There is no intracranial hemorrhage, mass, mass effect or abnormal extra-axial fluid collection. No evidence of an acute territorial infarct. The ventricles are normal. The skull base and calvarium demonstrate no abnormality. The included paranasal sinuses and mastoid air cells are clear. IMPRESSION: Normal noncontrast head CT. Interpreted By: Guy Jefferson MDPreliminary Report By: Guy Jefferson MDElectronically Signed By: Guy Jefferson MD Dictated Date: 02/10/2017 4:36:41 AM Prelim Date: 02/10/2017 4:36:41 AM Sign Date: 02/10/2017 4:37:44 AM Normal [facility] ED Note-Provideron 7 ED Note-Provider Normal [facility] Patient Summary Documentson 02-10-2017 Patient Summary Documents Normal [facility] Vital Signs Date Time Vital Sign Value Performing Clinician Edwina lund 05-02-2025 09:39-0400 Body height 165.[address] Sandip Aceves MD Work Phone: [facility] 05-02-2025 09:38-0400 Body mass index (BMI) [Ratio] 31.8 kg/m2 Dr. Sandip Aceves MD Work Phone: [facility] 05-02-2025 09:38-0400 Body weight 86.[address] Sandip Aceves MD Work Phone: [facility] 05-02-2025 09:38-0400 Diastolic blood pressure 76 mm[Hg] Dr. Sandip Aceves MD Work Phone: 5(108)700-466817 [place] [address] 05-02-2025 09:38-0400 Systolic blood pressure 115 mm[Hg] Dr. Sandip Aceves MD Work Phone: 0(931)605-082117 [place] [address] 04-06-2025 11:37-0400 Body height 165.[address] Sandip Aceves MD Work Phone: 6(886)888-171017 [place] [address] 04-06-2025 11:37-0400 Body mass index (BMI) [Ratio] 31.7 kg/m2 Dr. Sandip Aceves MD Work Phone: 9(251)051-743717 [place] [address] 04-06-2025 11:37-0400 Body weight 86.[address] Sandip Aceves MD Work Phone: 3(147)134-782617 [place] [address] 04-06-2025 11:37-0400 Diastolic blood pressure 77 mm[Hg] Dr. Sandip Aceves MD Work Phone: 8(705)671-281417 [place] [address] 04-06-2025 11:37-0400 Systolic blood pressure 117 mm[Hg] Dr. Sandip Aceves MD Work Phone: 6(776)229-063717 [place] [address] 03-09-2025 11:02-0400 Body height 165.[address] Sandip Aceves MD Work Phone: 9(064)147-957017 [place] [address] 03-09-2025 11:00-0400 Body mass index (BMI) [Ratio] 31.8 kg/m2 Dr. Sandip Aceves MD Work Phone: 7(400)707-223517 [place] [address] 03-09-2025 11:00-0400 Body weight 86.[address] Sandip Aceves MD Work Phone: 6(929)775-781117 [place] [address] 03-09-2025 11:00-0400 Diastolic blood pressure 80 mm[Hg] Dr. Sandip Aceves MD Work Phone: 1(373)398-070017 [place] [address] 03-09-2025 11:00-0400 Systolic blood pressure 127 mm[Hg] Dr. Sandip Aceves MD Work Phone: 4(528)982-109917 [place] [address] 02-23-2025 08:54-0400 Body mass index (BMI) [Ratio] 32.1 kg/m2 Dr. Sandip Aceves MD Work Phone: [facility] 02-23-2025 08:54-0400 Body weight 87.[address] Sandip Aceves MD Work Phone: [facility] 02-23-2025 08:54-0400 Diastolic blood pressure 60 mm[Hg] Dr. Sandip Aceves MD Work Phone: [facility] 02-23-2025 08:54-0400 Systolic blood pressure 114 mm[Hg] Dr. Sandip Aceves MD Work Phone: 6(915)397-495711 [address] 02-14-2025 09:21-0400 Body height 165.[address] Sandip Aceves MD Work Phone: 0(483)196-338517 [place] [address] 01-03-2025 13:48-0400 Body height 165.[address] Sandip Aceves MD Work Phone: 6(980)286-496411 [address] 01-03-2025 13:48-0400 Body mass index (BMI) [Ratio] 31.6 kg/m2 Dr. Sandip Aceves MD Work Phone: 1(411)772-474811 [address] 01-03-2025 13:48-0400 Body weight 86.[address] Sandip Aceves MD Work Phone: 9(953)772-124691 [place] [address] 01-03-2025 13:48-0400 Diastolic blood pressure 79 mm[Hg] Dr. Sandip Aceves MD Work Phone: [facility] 01-03-2025 13:48-0400 Systolic blood pressure 113 mm[Hg] Dr. Sandip Aceves MD Work Phone: [facility] 10-09-2024 14:33-0500 Diastolic blood pressure 78 mm[Hg] Sharda Harris MD Work Phone: [facility] 10-09-2024 14:33-0500 Heart rate 88 /min Otjerrica Harris MD Work Phone: [facility] 10-09-2024 14:33-0500 Systolic blood pressure 132 mm[Hg] Sharda Harris MD Work Phone: [facility] 08-03-2023 12:16-0500 Body height 165.[address] Sandip Aceves Work Phone: [facility] 08-03-2023 12:16-0500 Body mass index (BMI) [Ratio] 31.6 kg/m2 Dr. Sandip Aceves Work Phone: [facility] 08-03-2023 12:16-0500 Body temperature 98.6 [degF] Dr. Sandip Aceves Work Phone: [facility] 08-03-2023 12:16-0500 Body weight 86.[address] Sandip Aceves Work Phone: [facility] 08-03-2023 12:16-0500 Diastolic blood pressure 86 mm[Hg] Dr. Sandip Aceves Work Phone: [facility] 08-03-2023 12:16-0500 Heart rate 86 /min Dr. Sanidp Aceves Work Phone: [facility] 08-03-2023 12:16-0500 Respiratory rate 16 /min Dr. Sandip Aceves Work Phone: [facility] 08-03-2023 12:16-0500 SaO2% (BldA) [Mass fraction] 96 % Dr. Sandip Aceves Work Phone: [facility] 08-03-2023 12:16-0500 Systolic blood pressure 128 mm[Hg] Dr. Sandip Aceves Work Phone: [facility] 07-21-2023 14:31-0500 Body height 165.1 cm Sharda Harris MD Work Phone: [facility] 07-21-2023 14:31-0500 Body mass index (BMI) [Ratio] 31.62 kg/m2 Sharda Harris MD Work Phone: [facility] 07-21-2023 14:31-0500 Body weight 86.18 kg Sharda Harris MD Work Phone: [facility] 07-21-2023 14:31-0500 Diastolic blood pressure 72 mm[Hg] Sharda Harris MD Work Phone: [facility] 07-21-2023 14:31-0500 Heart rate 77 /min Otjerrica Harris MD Work Phone: [facility] 07-21-2023 14:31-0500 Systolic blood pressure 118 mm[Hg] Otjerrica Harris MD Work Phone: [facility] Encounters Encounter Date Encounter Type Care Provider Facility Start: 06-01-2025 End: 06-01-2025 ambulatory Jodi Dominique Facility:[facility] Start: 06-01-2025 End: 06-01-2025 ambulatory Laura Jiang Facility:[facility] Start: 05-02-2025 End: 05-02-[address] Laura Jiang DO -[facility][1] Work Phone: Start: 05-02-2025 End: 05-02-[address] Sandip Aceves MD Work Phone: -[facility][1] Start: 04-06-2025 End: 04-06-2025 Patient encounter procedure Kathy Morgan [facility] -[facility][1] Work Phone: Start: 04-06-2025 End: 04-06-[address] Sandip Aceves MD Work Phone: -[facility][1] Start: 04-06-2025 End: 04-06-2025 ambulatory Kathy Morgan Facility:[facility] Start: 03-09-2025 End: 03-09-[address] Sandip Aceves MD Work Phone: -Laboratory Specimen Start: 03-09-2025 End: 03-09-[address] Laura Jiang DO -Laboratory Specimen Work Phone: Start: 03-09-2025 End: 03-09-[address] Laura Jiang DO [facility][1] Work Phone: Start: 03-09-2025 End: 03-09-[address] Sandip Aceves MD Work Phone: -[facility][1] Start: 03-09-2025 End: 03-09-2025 ambulatory Laura Jiang Facility:[facility] Start: 02-23-2025 End: 02-23-[address] Laura Jiang DO [facility][1] Work Phone: Start: 02-23-2025 End: 02-23-[address] Sandip Aceves MD Work Phone: -[facility][1] Start: 01-03-2025 End: 01-03-2025 Patient encounter procedure Sanjuana HOUSER -[facility][1] Work Phone: Start: 01-03-2025 End: 01-03-2025 Patient encounter status Sanjuana Calabrese NP-[facility] Start: 01-03-2025 End: 01-03-[address] Sandip Aceves MD Work Phone: [facility] Work Phone: Start: 10-09-2024 End: 10-09-2024 Office outpatient visit 25 minutes Otjerrica Harris MD Work Phone: [facility] Comment on above: Inappropriate sinus tachycardia (HCC) (Primary Dx) Start: 10-09-2024 End: 10-09-2024 ambulatory OTFRIED [facility] Start: 08-11-2024 End: 08-11-2024 Refill Sharda Harris MD Work Phone: [facility] Comment on above: History of palpitati ons Start: 09-30-2023 Refill Otjerrica mora MD Work Phone: [facility] Comment on above: History of palpitati ons Start: 08-03-2023 End: 08-03-[address] Sandip Aceves Work Phone: [facility] Work Phone: Start: 08-03-2023 End: 08-03-[address] Sandip Aceves Work Phone: [facility] Work Phone: Start: 07-21-2023 End: 07-21-2023 Office outpatient visit 15 minutes Otjerrica Harris MD Work Phone: [facility] Comment on above: Inappropriate sinus tachycardia; History of palpitations Start: 07-05-2023 End: 07-05-[address] Sandip Aceves Work Phone: [facility] Work Phone: Start: 10-16-2022 End: 10-16-2022 ambulatory [facility] Work Phone: Start: 10-16-2022 End: 10-16-2022 Patient encounter procedure [facility]-Laboratory, [place] Start: 10-05-2022 End: 10-05-2022 ambulatory [facility] Work Phone: Start: 10-05-2022 End: 10-05-2022 Patient encounter procedure [facility]-Laboratory, Specimen Start: 08-13-2017 Ambulatory Ellajudy Harris [facility] Start: 08-04-[address] [facility] Start: 02-10-2017 End: 02-10-2017 Emergency department patient visit SARINA MCCRARY Facility:[facility] Procedures Date Procedure Procedure Detail Performing Clinician Start: 04-06-2025 Hepatitis C antibody measurement Dr. Sandip Aceves MD Work Phone: Comment on above: Reactive: Presumptiv e evidence of antibodies to HCV. Follow CDC recommendations for supplemental testing.Non-Reactive: Antibodies to HCV were not detected; does not exclude the possibility of exposure to HCVReactive Results are presumptive evidence of antibodies to HCV. Follow CDC recommendations for supplemental testing.Order confirmation testing: HCV Quant by PCR testing - HCVPCR #[id number] Non Reactive: < 0.8 Equivocal: >/= 0.8 to < 1.0 Reactive: >/= 1.0The [facility] requires that a reactive/equivocal HCV antibody result be sent out for confirmation. HCV Quant by PCR testing. Start: 04-06-[address] Sandip Aceves MD Work Phone: Comment on above: Antibody Result: Int erpretationNon-Reactive: Non- ImmuneReactive: ImmuneThe following results were obtained with the [employer] Rubella IgG assay. Results from assays of other manufacturers cannot be used interchangeably. Start: 04-06-2025 Serologic test for syphilis Dr. Sandip Aceves MD Work Phone: Start: 03-09-[address] Sandip Aceves MD Work Phone: Start: 08-03-2023 Plain X-ray of shoulder Dr. Sandip Aceves Work Phone: Start: 07-21-2023 Ecg routine ecg w/le ast 12 lds w/i&r Otfried Cortes Harris MD Work Phone: Plan of Treatment Date Care Activity Detail Author Start: 2072 RSV Immunization for Adults (1 - 1-dose 75+ series) RSV Immunization for Adults (1 - 1-dose 75+ series) [facility] Start: 2057 RSV Immunization aged 60 or older (1 - 1-dose 60+ series) RSV Immunization aged 60 or older (1 - 1-dose 60+ series) [facility] Start: 2047 Zoster Vaccines (1 of 2) Zoster Vaccines (1 of 2) [facility] Start: 10-30-2031 DTaP/Tdap/Td Vaccines (8 - Td or Tdap) DTaP/Tdap/Td Vaccines (8 - Td or Tdap) [facility] Start: 04-06-2025 CBC W Auto Differential panel - Blood [facility] Start: 04-06-2025 Hemoglobin A1c/Hemoglobin.total in Blood [facility] Start: 04-06-2025 Hepatitis C antibody measurement [facility] Start: 04-06-2025 Rubella IgG measurement [facility] Start: 04-06-2025 Serologic test for syphilis [facility] Start: 04-06-2025 [facility] Start: 04-09-2024 COVID-19 Vaccine ( season) COVID-19 Vaccine ( season) [facility] Start: 04-09-2024 Influenza vaccination Influenza Vaccine (#1) [facility] Start: 08-03-2023 Patient referral [facility] Work Phone: Start: 04-09-2023 Influenza vaccination Influenza Vaccine (#1) [facility] Start: 2018 Screening for malignant neoplasm of cervix Pap Smear [facility] Start: 2016 Pneumococcal Vaccine: Pediatrics (0 to 5 Years) and At-Risk Patients (6 to 49 Years) (1 of 2 - PCV) Pneumococcal Vaccine: Pediatrics (0 to 5 Years) and At-Risk Patients (6 to 49 Years) (1 of 2 - PCV) [facility] Start: 2015 Hepatitis C screening Hepatitis C Screening [facility] Start: 2009 Depression Screening Depression Screening [facility] Start: 1997 COVID-19 Vaccine (#1) COVID-19 Vaccine (#1) [facility] Start: 1997 HIV screening HIV Screening [facility] Start: 1997 Lipid panel Lipid Panel [facility] CBC W Auto Different ial panel - Blood [facility] Chlamydia deoxyribon ucleic acid detection [facility] Erythrocyte mean corpuscular volume determination [facility] Hematocrit [Volume Fraction] of Blood [facility] Hemoglobin [Mass/vol ume] in Blood [facility] Hemoglobin A1c/Hemoglobin.total in Blood [facility] Hepatitis B virus acosta rface Ag [Presence] in Serum [facility] Hepatitis C antibody measurement [facility] Leukocytes [#/volume ] in Blood [facility] Mean corpuscular hem oglobin concentration determination [facility] Mean corpuscular hem oglobin determination [facility] Neutrophil count [facility] Neutrophil percent differential count [facility] Patient referral [facility] Work Phone: Platelets [#/volume] in Blood [facility] Red blood cell count [facility] Red cell distributio n width determination [facility] Rubella IgG measurement [facility] Serologic test for syphilis [facility] Ultrasonography in f irst trimester [facility] Immunizations Immunization Date Immunization Notes Care Provider Fa deliciaty 10-29-2021 tetanus toxoid, redu jane diphtheria toxoid, and acellular pertussis vaccine, adsorbed [facility] 06-06-2021 influenza virus vaccine, unspecified formulation Sharda Harris MD Work Phone: [facility] 07-23-2020 Influenza, injectabl e, quadrivalent, preservative free Otjerrica Harris MD Work Phone: [facility] 06-20-2019 Influenza, injectabl e, quadrivalent, preservative free Otjerrica Harris MD Work Phone: [facility] 04-27-2018 tuberculin skin test ; purified protein derivative solution, intradermal Otjerrica Harris MD Work Phone: [facility] 05-22-2016 influenza virus vaccine, unspecified formulation Sharda Harris MD Work Phone: [facility] Work Phone: 03-28-2012 human papilloma viru s vaccine, quadrivalent Otjerrica Harris MD Work Phone: [facility] 12-21-2011 hepatitis A vaccine, pediatric/adolescent dosage, 2 dose schedule [facility] 09-23-2011 human papilloma viru s vaccine, quadrivalent Sharda Harris MD Work Phone: [facility] 06-19-2011 hepatitis A vaccine, pediatric/adolescent dosage, 2 dose schedule [facility] 06-19-2011 human papilloma viru s vaccine, quadrivalent Otjerrica Harris MD Work Phone: [facility] 06-19-2011 meningococcal polysaccharide (groups A, C, Y and W-135) diphtheria toxoid conjugate vaccine (MCV4P) Sharda Harris MD Work Phone: [facility] 06-19-2011 tetanus toxoid, redu jane diphtheria toxoid, and acellular pertussis vaccine, adsorbed Otfried Steven KAHN Work Phone: [facility] 06-19-2011 varicella virus vaccine [facility] 01-16-2002 diphtheria, tetanus toxoids and acellular pertussis vaccine Otfried Steven KAHN Work Phone: [facility] 01-16-2002 measles, mumps and rubella virus vaccine [facility] 01-16-2002 poliovirus vaccine, unspecified formulation Otfried Steven KAHN Work Phone: [facility] 06-21-2000 varicella virus vaccine Otfr ied Steven KAHN Work Phone: [facility] 11-27-1998 diphtheria, tetanus toxoids and acellular pertussis vaccine Otfried Steven KAHN Work Phone: [facility] 11-27-1998 poliovirus vaccine, unspecified formulation Otfried Steven KAHN Work Phone: [facility] 09-27-1998 measles, mumps and rubella virus vaccine Otfried Steven KAHN Work Phone: [facility] 1997 hepatitis B vaccine, adult dosage Otfried Steven KAHN Work Phone: [facility] 1997 diphtheria, tetanus toxoids and acellular pertussis vaccine Otfried Steven KAHN Work Phone: [facility] 1997 diphtheria, tetanus toxoids and acellular pertussis vaccine Otfried Steven KAHN Work Phone: [facility] 1997 hepatitis B vaccine, adult dosage Otfried Steven KAHN Work Phone: [facility] 1997 poliovirus vaccine, unspecified formulation Otfried Steven KAHN Work Phone: [facility] 1997 diphtheria, tetanus toxoids and acellular pertussis vaccine Otfried Steven KAHN Work Phone: [facility] 1997 poliovirus vaccine, unspecified formulation Otfried Steven KAHN Work Phone: [facility] 1997 hepatitis B vaccine, adult dosage Otfried Steven KAHN Work Phone: [facility] 1997 hepatitis B vaccine, adult dosage Otfried Steven KAHN Work Phone: [facility] Payers Date Payer Category Payer Self-pay 2024 Unknown [id number] 2024 [employer] [facility] [place] BLUE CROSS [id number] 2024 Unknown [id number] 2022 [facility] - [facility] [place] MARGUERITE RECINOS [id number] 2022 Private Health Insurance MARGUERITE RECINOS [id number] 2022-Present [address] [place] [id number] Commercial [id number] 2016 Unknown [id number] Unknown Unknown [id number] Unknown [id number] 462 Unknown [id number] [id number]. 462 Unknown [id number]. 462 Unknown [id number] [id number]. 462 Unknown [id number] [id number]. 462 Unknown [id number] [id number]. 462 Unknown [id number] [id number]. 462 Unknown [id number] [id number]. 462 Unknown [id number]. 462 Social History Date Type Detail Facility Tobacco smoking stat us UTIS Unknown if ever smoked [facility] Work Phone: Start: 1995 Sex Assigned At Female W [facility] Start: 01-02-2024 End: 02-23-2025 Tobacco smoking status UTIS Never smoked tobacco [facility] Start: 07-20-2022 End: 10-09-2024 Alcohol intake Current drinker of alcohol (finding) [facility] Start: 07-20-2022 End: 10-09-2024 History of Social function [facility] Start: 07-20-2022 End: 10-09-2024 Tobacco use panel [facility] Start: 1995 Sex Assigned At Not on file [facility] Start: 03-09-2022 Sex Female (finding) [facility] Clinical Notes 10-05-2022 to 05-02-2025 Note Date & Type Note Facility 05-02-2025 Progress note [facility] 04-06-2025 Progress note [facility] 03-09-2025 Evaluation note Diagnosis Onset Date Resolution Obesity affecting acute March 09, 2025 10:35am acute March 09 10:35am Sinus tachycardia August 09, 2017 acute March 09, 2025 10:35am Supervision of high-risk acute March 09, 2025 10:35am Obesity affecting acute April 06, 2025 11:33am acute April 06, 2025 11:33am Sinus tachycardia August 09, 2017 acute April 06, 2025 11:33am Supervision of high-risk acute April 06, 2025 11:33am Obesity affecting acute May 02, 2025 9:34am acute April 9:34am Sinus tachycardia August 09, 2017 acute May 02, 2025 9:34am Supervision of high-risk acute May 02, 2025 9:34am [facility] Work Phone: 1(767) 489-824505-28-2025 Evaluation note* Diagnosis Onset Date Resolution Status Admit Date Encounter for routine gynecological examination noneactive January 032024 1:45pm [facility] Work Phone: 1(328) 723-797705-28-2025 Evaluation note* Diagnosis Onset Date Resolution Status Admit Date Encounter for routine gynecological examination noneactive January 032024 1:45pm Obesity affecting acute March 09, 2025 10:35am acute March 09 10:35am Sinus tachycardia August 09, 2017 acute March 09, 2025 10:35am Supervision of high-risk acute March 09, 2025 10:35am [facility] Work Phone: 1(908) 842-290605-28-2025 Evaluation note* Diagnosis Onset Date Resolution Status Admit Date Encounter for routine gynecological examination noneactive January 032024 1:45pm Obesity affecting acute March 09, 2025 10:35am acute March 09 10:35am Sinus tachycardia August 09, 2017 acute March 09, 2025 10:35am Supervision of high-risk acute March 09, 2025 10:35am Obesity affecting acute April 06 11:33am acute April 06, 025 11:33am Sinus tachycardia August 09, 2017 acute April 06, 2025 11:33am Supervision of high-risk acute April 06 11:33am [facility] Work Phone: 1(418) 504-888805-28-2025 Progress [facility] [address] [place] [address], [address] [place] [address] OFFICE VISIT Date of Service: 01/03/25 MR#: [id number] Acct: [id number] Name: YUNIEL RIOS Rep #: [id number] : 1995 Provider: CORRINA Calabrese Age/Sex: 29/F [place] [facility]: Signed Intake Vital Signs 01/02/24 19:07 01/03/25 13:48 Height 5 ft 5 in 5 ft 5 in Weight: 190 lb 2 oz BMI 31.6 BP 113/79 Intake Visit Reasons: 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 Is patient in pain?: No Allergies No Known Allergies Allergy (Verified 01/03/25 13:48) Medications ?Medication ?Instructions ?Recorded ?Confirmed ?Type labetalol 200 mg tablet 200 mg PO BID 01/03/2501/03 History Post menopausal: No Patient : No : No Control Method: none PFSH Medical History Sinus tachycardia (08/09/17) Left shoulder pain Social History Smoking Status: Never smoker alcohol intake: current alcohol intake frequency: holidays/special occasions only substance use type: does not use caffeine: No what type of physical activity do you participate in: other details: crossfit frequency: 5-6 times per week seatbelt use: always do you feel safe at home: Yes additional social history: Engaged-Lucía History 0 Elective abortions Hx Para Spontaneous abortions Hx # Term Pregnancies Ectopic pregnancies Hx # Pregnancies Multiple births # of living children HPI Encounter for routine gynecological examination Details: YUNIEL RIOS is a 29 year old who presents for annual exam. She reports she isno longer taking OCP; they are trying to conceive. Went off OCP in November and got in December. Doing well otherwise. Last PAP: 2022; normal. History of abnormal PAP: no. Last mammogram: age 42 History of abnormal mammogram: n/a Colon cancer screening: age 47 Other preventative health care screenings: Sandip Bejarano; PCP. ROS Const Constitutional: Denies chills, fatigue, fever(s), headache(s) or weight loss Eyes Eyes: Denies change in vision ENT ENT: Denies dizziness Resp Resp: Denies cough GI GI: Denies abdominal pain, constipation or nausea : Denies difficulty voiding, dysuria, hematuria, nipple discharge, pelvic pain, prolapse symptoms, urinary incontinence, vaginal discharge, vaginal dryness, vaginal odor or vaginal pruritus Skin Skin/Breast: Denies alopecia, rash, breast mass, breast pain, breast skin changes or nipple discharge Neuro Neuro: Denies dizziness Psych Psych: Denies anxiety or depression Endo Endo: Denies cold intolerance, excessive sweating or heat intolerance Exam Const General: cooperative, healthy appearing, comfortable, no acute distress, well groomed and well hydrated Nutritional Appearance: well nourished Orientation: alert, awake and oriented x3 HENMT Head: normal to inspection and normocephalic Ears: hearing grossly normal bilaterally and external ears normal Nose: external nose normal Face and sinus: normal facial exam Eyes General: appearance normal, both eyes and all related structures Neck Neck: normal visual inspection, full ROM and no lymphadenopathy Thyroid: thyroid normal Chest Chest palpation & inspection: normal inspection of the chest Breast inspection: normal inspection of the breasts and normal inspection of theaxillae Breast palpation: normal palpation of the breasts, normal palpation of the axillae and no axillary lymphadenopathy Resp Effort & Inspection: normal respiratory effort, able to speak in complete sentences and symmetric chest movement GI Inspection: normal to inspection Palpation: soft and no hepatosplenomegaly General: bladder normal to palpation External Female Exam: normal external appearance and normal appearance of the urethra Urethra: normal appearance of the urethra Speculum Exam - Vagina: normal appearance of the vagina, normal vaginal discharge, no lesions and nontender Speculum Exam - Cervix: normal appearance of the cervix, no lesions and no masses Bimanual Exam- Vagina & Uterus: normal bimanual exam, uterine size normal, bladder normal to palpation, uterine mobility normal, normal palpation and non-tender Bimanual Exam- Adnexa, other: normal adnexae, no masses, normal and non-tender Pelvic Support: normal Skin General: no rashes or lesions noted Neuro General: patient alert, patient awake, patient oriented x3 and moves all extremities Psych Appearance: grossly normal Mental Status: mental status grossly normal Affect: normal affect Speech and Movement: speech and movement normal Attitude: cooperative Coding Level of Care Code Established Pt Off vis,est,prev 18-39yrs Patient Type Established Diagnoses Encounter for routine gynecological examination Z01.419 Assessment and Plan Assessment and Plan (1) Encounter for routine gynecological examination: Plan: Breast and pelvic exam complete. PAP due: UTD 2022; due in 1 year. Mammogram due: routine screenings age 42 Advised self breast exams monthly. Contraception: attempting to conceive Advised incorporating healthy dietary choices such as increase in lean meats, fruits/vegetables, less processed food/sat fat/trans fats. Increase exercise to 30 minutes per day/5 days a week. This can include both weight bearing exercisesand/or brisk walking. Follow up with PCP for further preventative health screenings. Follow up 1 year for repeat annual market manager exam. Call office sooner with questions or concerns. 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-C> Date _ Sanjuana Calabrese [employer]ICOND[employer] PACK[employer] SEALER-C Cosigner Signature: Date (if applicable) CC: ~ [facility]05-28-2025 Progress note Author Sanjuana Calabrese [facility] Note Date/Time January 03, 2025 2:23p m [facility] [address], [address] [place] [address] OFFICE VISIT Date of Service: 01/03/25 MR#: [id number] Acct: [id number] Name: YUNIEL RIOS Rep #: [id number] : 1995 Provider: CORRINA Calabrese Age/Sex: 29/F [place] [facility] [place]: Signed Intake Vital Signs 01/02/24 19:07 01/03/25 13:48 Height 5 ft 5 in 5 ft 5 in Weight: 190 lb 2 oz BMI 31.6 BP 113/79 Intake Visit Reasons: 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 Is patient in pain?: No Allergies No Known Allergies Allergy (Verified 01/03/25 13:48) Medications ?Medication ?Instructions ?Recorded ?Confirmed ?Type labetalol 200 mg tablet 200 mg PO BID 01/03/2501/03 History Post menopausal: No Patient : No : No Control Method: none PFSH Medical History Sinus tachycardia (08/09/17) Left shoulder pain Social History Smoking Status: Never smoker alcohol intake: current alcohol intake frequency: holidays/special occasions only substance use type: does not use caffeine: No what type of physical activity do you participate in: other details: crossfit frequency: 5-6 times per week seatbelt use: always do you feel safe at home: Yes additional social history: Engaged-Lucía History 0 Elective abortions Hx Para Spontaneous abortions Hx # Term Pregnancies Ectopic pregnancies Hx # Pregnancies Multiple births # of living children HPI Encounter for routine gynecological examination Details: YUNIEL RIOS is a 29 year old who presents for annual exam. She reports she isno longer taking OCP; they are trying to conceive. Went off OCP in November and got in December. Doing well otherwise. Last PAP: 2022; normal. History of abnormal PAP: no. Last mammogram: age 42 History of abnormal mammogram: n/a Colon cancer screening: age 47 Other preventative health care screenings: Sandip Bejarano; PCP. ROS Const Constitutional: Denies chills, fatigue, fever(s), headache(s) or weight loss Eyes Eyes: Denies change in vision ENT ENT: Denies dizziness Resp Resp: Denies cough GI GI: Denies abdominal pain, constipation or nausea : Denies difficulty voiding, dysuria, hematuria, nipple discharge, pelvic pain, prolapse symptoms, urinary incontinence, vaginal discharge, vaginal dryness, vaginal odor or vaginal pruritus Skin Skin/Breast: Denies alopecia, rash, breast mass, breast pain, breast skin changes or nipple discharge Neuro Neuro: Denies dizziness Psych Psych: Denies anxiety or depression Endo Endo: Denies cold intolerance, excessive sweating or heat intolerance Exam Const General: cooperative, healthy appearing, comfortable, no acute distress, well groomed and well hydrated Nutritional Appearance: well nourished Orientation: alert, awake and oriented x3 [facility] Head: normal to inspection and normocephalic Ears: hearing grossly normal bilaterally and external ears normal Nose: external nose normal Face and sinus: normal facial exam Eyes General: appearance normal, both eyes and all related structures Neck Neck: normal visual inspection, full ROM and no lymphadenopathy Thyroid: thyroid normal Chest Chest palpation & inspection: normal inspection of the chest Breast inspection: normal inspection of the breasts and normal inspection of theaxillae Breast palpation: normal palpation of the breasts, normal palpation of the axillae and no axillary lymphadenopathy Resp Effort & Inspection: normal respiratory effort, able to speak in complete sentences and symmetric chest movement GI Inspection: normal to inspection Palpation: soft and no hepatosplenomegaly General: bladder normal to palpation External Female Exam: normal external appearance and normal appearance of the urethra Urethra: normal appearance of the urethra Speculum Exam - Vagina: normal appearance of the vagina, normal vaginal discharge, no lesions and nontender Speculum Exam - Cervix: normal appearance of the cervix, no lesions and no masses Bimanual Exam- Vagina & Uterus: normal bimanual exam, uterine size normal, bladder normal to palpation, uterine mobility normal, normal palpation and non-tender Bimanual Exam- Adnexa, other: normal adnexae, no masses, normal and non-tender Pelvic Support: normal Skin General: no rashes or lesions noted Neuro General: patient alert, patient awake, patient oriented x3 and moves all extremities Psych Appearance: grossly normal Mental Status: mental status grossly normal Affect: normal affect Speech and Movement: speech and movement normal Attitude: cooperative Coding Level of Care Code Established Pt Off vis,est,prev 18-39yrs Patient Type Established Diagnoses Encounter for routine gynecological examination Z01.419 Assessment and Plan Assessment and Plan (1) Encounter for routine gynecological examination: Plan: Breast and pelvic exam complete. PAP due: UTD 2022; due in 1 year. Mammogram due: routine screenings age 42 Advised self breast exams monthly. Contraception: attempting to conceive Advised incorporating healthy dietary choices such as increase in lean meats, fruits/vegetables, less processed food/sat fat/trans fats. Increase exercise to 30 minutes per day/5 days a week. This can include both weight bearing exercisesand/or brisk walking. Follow up with PCP for further preventative health screenings. Follow up 1 year for repeat annual market manager exam. Call office sooner with questions or concerns. 01/03/25 1423 <Electronically signed by Sanjuana HOUSER> Date _ Sanjuana HOUSER Cosigner Signature: Date (if applicable) CC: ~ [facility] Work Phone: 1(712) 615-781103-03-2025 History of Present illness Narrative* Sharda Harris MD - 10/09/2024 2:30 PM EST [facility] Telehealth Cardiology Note DATE of SERVICE: 10/09/24 TIME of SERVICE: 2:49 PM Chief Complaint: Chief Complaint Patient presents with Follow-up Other Inappropriate sinus tachycardia History of Present Illness: Yuniel Rios is a 29 y.o. female who presents for virtual visit to follow-up on her inappropriate sinus tachycardia. Since he got started on nadolol she has no symptoms. She states in the morning her initial heart rate is still elevated, however as soon as she takes nadolol her heart rate drops down to around 80 bpm. She is asymptomatic. However, she is planning to get and wonderswhether nadolol is safe. All else is negative. Participants on telehealth call: Yuniel Rios Past Medical History: Past Medical History: Diagnosis Date Asthma Palpitations Tachycardia Past Surgical History History reviewed. No pertinent surgical history. Family History Family History Problem Relation Name Age of Onset No Known Problems Mother No Known Problems Father Brain cancer Mother's Sister Asthma Maternal Grandmother High Blood Pressure Maternal Grandmother Other ([id number]) Other Social History Social History Tobacco Use Smoking status: Never Smokeless tobacco: Never Substance Use Topics Alcohol use: Yes Drug use: No Allergies: No Known Allergies Medications: Current Outpatient Medications: Dmw-Hb-Mefgdvxt 0.18/0.215/0.25 MG-25 MCG tablet, Take 1 tablet by mouth in the morning. as directed., Disp: 28 tablet, Rfl: 2 labetalol (Normodyne) 100 MG tablet, Take 1 tablet (100 mg) by mouth 2 times daily., Disp: 180 tablet, Rfl: 3 Review of Systems: Review of Systems Respiratory: Negative for chest tightness and shortness of breath. Cardiovascular: Negative for chest pain and palpitations. Neurological: Negative for dizziness and light-headedness. Vital Signs (self reported) Blood pressure: 132/78 mmHg Pulse: 80 bpm Laboratory Tests: No results found for: WBC, HGB, HCT, MCV, PLT No results found for: GLUCOSE, CALCIUM, NA, K, CO2, CL, BUN, CREATININE @LASTCMP@ No results found for: CHLPL, CHOL No results found for: TRIG No results found for: HDL No results found for: LDLCALC Cardiac Tests: EC07/21/23 Assessment and Plan: There are no diagnoses linked to this encounter. Diagnosis Plan 1. Inappropriate sinus tachycardia (HCC) Yuniel Rios is doing well regarding her inappropriate sinus tachycardia. It is controlled on beta-dulce maria therapy. However she is planning to get , therefore I recommended beta-dulce maria is labetalol. I will start the patient on 100 mg twice daily. I advised the patient to check her symptoms as well as her heart rate and blood pressure. If necessary the drug dose may have to be adjusted. No additional testing is recommended. I would like to reassess in 1 year. I reviewed my assessment and plan with Yuniel Schmittlauryjuana . All questions were answered. NOTE: This report was transcribed using voice recognition software. Every effort was made to ensureaccuracy; however, inadvertent computerized loft rigger errors may be present. Patient was identified and seen today via Telehealth by agreement and consent. I used the followingTelehealth technology: Audio capability only. Total length of call 15 minutes. The patient was offered and advised video for a more comprehensive evaluation, but the patient declined or was unable touse video. Patient location: Patient Location: Home. This patient encounter is appropriate and reasonable under the circumstances: transportation issues . The patient has been advised of the potential risks and limitations of this mode of treatment (including but not limited to the absence of in-person examination) and has agreed to be treated in a remote fashion in spite of them. Any and all o f the patient's/patient's family's questions on this issue have been answered and I have made no promises or guarantees to the patient. The patient has also been advised to contact this office for worsening conditions or problems, and seek emergency medical treatment and/or call 911 if the patient deems either necessary. The patient stated that they are currently in the [facility]. If the patient is a minor, permission has been obtained by the parent or guardian for the patient to receive medical care at this visit. documented in this [facility]01-03-2025 Telephone encounter Note* Telephone Encounter - Jazmin Bowie RN - 08/11/2024 11:44 AM EST SVEN 07/21/23 [id number] Miscellaneous Notes* Telephone Encounter - Jazmin Bowie RN - 08/11/2024 11:44 AM EST SVEN 07/21/23 documented in this [facility]02-22-2024 Telephone encounter Note* Telephone Encounter - Josie Forte RN - 09/30/2023 11:44 AM EST OV 07/21/23 [id number] Miscellaneous Notes* Telephone Encounter - Josie Forte RN - 09/30/2023 11:44 AM EST OV 07/21/23 * Telephone Encounter - Bailey Roque - 09/30/2023 11:36 AM EST Pt called in today for medication refill : Nadolol 20 MG tablet sent to [facility] documented in this [facility]02-22-2024 Telephone encounter Note* Telephone Encounter - Bailey Roque - 09/30/2023 11:36 AM EST Pt called in today for medication refill : Nadolol 20 MG tablet sent to [id number] History of Present illness Narrative* Kel Rebolledo MA - 07/21/2023 2:45 PM EST Kg * Sharda Harris MD - 07/21/2023 2:45 PM EST [facility] Cardiology [facility] [address] [place] [phone] Dept: [phone] Dept Visit type: Established : 1995 Chief Complaint: Chief Complaint Patient presents with 1 Year Follow-up Rapid Heart Rate History of Present Illness: Yuniel Rios is a 28 y.o. female who presents today for routine follow-up regarding inappropriate sinus tachycardia and palpitations. Since last year she has not had any symptoms. 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 She exercises at least 4 days a week with either CrossFit or doing some weight exercises. She has no cardiac symptoms whatsoever. She yoseph es side effects from nadolol. All else is negative. Past Medical History: Past Medical History: Diagnosis Date Asthma Palpitations Tachycardia Past Surgical History No past surgical history on file. Family History Family History Problem Relation Name Age of Onset No Known Problems Mother No Known Problems Father Brain cancer Mother's Sister Asthma Maternal Grandmother High Blood Pressure Maternal Grandmother Other ([id number]) Other Social History Social History Tobacco Use Smoking status: Never Smokeless tobacco: Never Substance Use Topics Alcohol use: Yes Drug use: No Allergies: No Known Allergies Medications: Current Outpatient Medications: Tfr-Ap-Qovuxehl 0.18/0.215/0.25 MG-25 MCG tablet, Take 1 tablet by mouth in the morning. as directed., Disp: 28 tablet, Rfl: 2 nadolol (Corgard) 20 MG tablet, Take 1 tablet (20 mg) by mouth daily., Disp: 90 tablet, Rfl: 3 Review of Systems: Review of Systems Constitutional: Negative for activity change, chills, diaphoresis, fatigue and fever. HENT: Negative for nosebleeds and trouble swallowing. Eyes: Negative for discharge and visual disturbance. Respiratory: Negative for apnea, cough, chest tightness, shortness of breath and wheezing. Cardiovascular: Negative for chest pain, palpitations and leg swelling. Gastrointestinal: Negative for abdominal distention, abdominal pain, blood in stool, diarrhea, nausea and vomiting. Endocrine: Negative for cold intolerance and heat intolerance. Genitourinary: Negative for hematuria. Musculoskeletal: Negative for gait problem and myalgias. Skin: Negative for color change and rash. Neurological: Negative for dizziness, seizures, syncope, facial asymmetry, speech difficulty, weakness, light-headedness, numbness and headaches. Hematological: Does not bruise/bleed easily. Psychiatric/Behavioral: Negative for dysphoric mood. Physical Examination: Vitals: Vitals: 07/21/23 1431 BP: 118/72 BP Location: Left arm Patient Position: Sitting BP Cuff Size: Adult Pulse: 77 Weight: 190 lb (86.2 kg) Height: 5' 5 (1.651 m) Body mass index is 31.62 kg/m . Physical Exam Vitals reviewed. Constitutional: Appearance: Normal appearance. She is normal weight. HENT: Head: Normocephalic and atraumatic. Right Ear: External ear normal. Left Ear: External ear normal. Nose: Nose normal. Eyes: Extraocular Movements: Extraocular movements intact. Conjunctiva/sclera: Conjunctivae normal. Neck: Vascular: No carotid bruit. Cardiovascular: Rate and Rhythm: Normal rate and regular rhythm. Heart sounds: No murmur heard. No gallop. Pulmonary: Effort: Pulmonary effort is normal. Breath sounds: Normal breath sounds. No wheezing. Abdominal: General: Bowel sounds are normal. Palpations: Abdomen is soft. Musculoskeletal: General: No swelling. Normal range of motion. Cervical back: Neck supple. Right lower leg: No edema. Left lower leg: No edema. Skin: General: Skin is warm and dry. Neurological: General: No focal deficit present. Mental Status: She is alert and oriented to person, place, and time. Psychiatric: Mood and Affect: Mood normal. Behavior: Behavior normal. Laboratory Tests: No results found for: WBC, HGB, HCT, MCV, PLT No results found for: GLUCOSE, CALCIUM, NA, K, CO2, CL, BUN, CREATININE No results found for: NA, K, CL, CO2, BUN, CREATININE, GLUCOSE, CALCIUM, PROT, BILITOT, ALKPHOS, AST, ALT No results found for: CREATININE No results found for: CHLPL, CHOL No results found for: TRIG No results found for: HDL No results found for: LDLCALC No results found for: BNP Cardiac Tests: EC07/21/23 Last Echo: Last stress test: Last cardiac catheterization: Assessment and Plan: 1. Inappropriate sinus tachycardia 2. History of palpitations Yuniel Rios is a pleasant 28-year-old woman who is symptoms as well as heart rate and bloodpressure are well-controlled with nadolol. Her exam is normal. She is physically active. No diagnostic or therapeutic changes are recommended. I would like to reassess in 1 year. I reviewed my assessment and plan with Yuniel Rios . All questions were answered. NOTE: This report was transcribed using voice recognition software. Every effort was made to ensureaccuracy; however, inadvertent computerized loft rigger errors may be present. documented in this [facility]02-27-2023 NotePap Smear Specimen AdequacyFebruary 2022 11:21amComment.Satisfactory for evaluation. Endocervical and/or squamous metaplasticcells (endocervical component)are present.[facility] INTERFACED A#[id number] [facility] ClinicComtr[facility] on above: Satisfactory for evaluation. Endocervical and/or squamous metaplasticcells (endocervical component)are present.10-05-2022 NotePap Smear Specimen Adequacy October 05, 2022 12:21pmComment.Satisfactory for evaluation. Endocervical and/or squamous metaplasticcells (endocervical component)are present.[facility] INTERFACED A#[id number] Osteopathic ClinicComment on above:Satisfactory for evaluation. Endocervical and/or squamous metaplasticcells (endocervical component)are present.Evaluation noteNo assessment information availableWUniversity Hospitals [facility] Work Phone: evaluation note* Diagnosis Inappropriate sinus tachycardia History of palpitations [facility] Diagnosis Onset Date Resolution Status Left shoulder pain acute [facility] Work Phone: Evaluation note* Diagnosis History of palpitations [facility]* Diagnosis History of palpitations [facility]* Diagnosis Inappropriate sinus tachycardia (HCC)- Primary [facility]* Diagnosis Onset Date Resolution Status Admit Date Encounter for routine gynecological examination noneactive January 032024 1:45pm [facility] Work Phone: Progress note Author Kathy Morgan [facility] Note Date/Time April 06, 2025 11 :55am [facility] [address] [place] [address], [address] [place] [address] OFFICE VISIT Date of Service: 04/06/25 MR#: [id number] Acct: [id number] Name: YUNIEL METZ Rep #: [id number] : 1995 Provider: TOYA Morgan Age/Sex: 29/F [place] [facility] [place]: Signed Intake Vital Signs 02/14/25 09:21 03/09/25 11:02 04/06/25 11:37 Height 5 ft 5 in 5 ft 5 in 5 ft 5 in Weight: 190 lb 9 oz BMI 31.7 BP 117/77 Intake Visit Reasons: 13wk ob Chief Complaint: 13wk 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 Is patient in pain?: No Allergies No Known Allergies Allergy (Verified 04/06/25 11:38) Medications ?Medication ?Instructions ?Recorded ?Confirmed ?Type labetalol 200 mg tablet 200 mg PO BID 01/03/2504/06 History docosahexaenoic acid 200 mg mg PO 02/23/25 04/06/25 Hi story capsule ( DHA) Last Menstrual Period: 01/06/25 : No PFSH PFSH Medical History Sinus tachycardia (08/09/17) Surgical History History of ankle surgery Family History Aunt Brain cancer Grandfather Myocardial infarction Grandfather Diabetes Social History adopted: No household members: spouse number of children: 0 current occupational status: employed current occupation: [employer] 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 ) pets and animals: Yes pets and animals: dog(s) history of recent travel: Yes ( - December 2024) out of state: No out of country: Yes sexually active: Yes Smoking Status: Never smoker second hand exposure: No alcohol intake: current alcohol intake frequency: holidays/special occasions only details: Not while substance use type: does not use well-balanced diet: daily or most days caffeine: No eating out: 1-3 times/week during the past year weight has: remained stable what type of physical activity do you participate in: walking, bicycling and other details: Crossfit frequency: 5-6 times per week duration: 45-60 minutes/day jeramie/restoration: None seatbelt use: always do you feel safe at home: Yes additional social history: : Lucía Darrel Shane History 1 Elective abortions 0 Hx Para 0 Spontaneous abortions 0 Hx # Term Pregnancies Ectopic pregnancies Hx # Pregnancies Multiple births # of living children HPI 13wk ob Details: YUNIEL METZ is a 29 year old who presents for routine OB visit. OB Visit JERRICA Calculator Estimated Delivery Date Method Current WG Current Estimate 10/13/25 LMP (Certain) 12w 6d Other Estimates 10/12/25 Ultrasound #1 13w 0d Expected Delivery Route/Plan Labor Preferences- CB/BF classes: [] labor support person: [] labor intervention preferences: [] pain management options preferred: [] cut cord/dad catch: [] : [] PP control planned: [] discussed possible routes of delivery and associated risks: [] special requests: [] Specific Issue/Plans Covid status: [] Flu vaccine: [] Tdap vaccine: [] Rhogam: [] LARC form signed: [] Problem list reviewed and updated with the most current plan of care details and appropriate orders placed. Relevant counseling for the gestational age provided. Continue routine care and follow up unless otherwise noted in visit notes/problem list details Initial Weight: 191 lb Date -?-?-?-?-?-?-?-?-?-?-?-?- EGA Weight BP Urine Prot -?-?-?-?-?-?-?-?-?-?-?-?- Glucose FHR FuHt Pres Dilation -?-?-?-?-?-?-?-?-?-?-?-?- Effaced St Visit Note 03/09/25 -?-?-?-?-?-?-?-?-?-?-?-?- 8w 6d 191 lb (+0 oz) 127/80 -?-?-?-?-?-?-?-?-?-?-?-?- 180 -?-?-?-?-?-?-?-?-?-?-?-?- JV- CRL measures 2.5 cm and consistent with LMP. Unsure about NIPT. wants to checke with insurance first. 04/06/25 -?-?-?-?-?-?-?-?--?-?-?-?- 12w 6d 190 lb 9 oz (-7 oz) 117/77 Negative -?-?-?-?-?-?-?-?-?-?-?-?- Negative 174 -?-?-?-?-?-?-?-?-?-?-?-?- KW- no vb/crampi ng. NOB labs today. US ordered. ACOG First Trimester First Trimester: Desire for , Alcohol, Tobacco Cessation, Illicit/Recreational Drug/Substance Use, Intimate Partner Violence, Barriers to care, Unstable Housing, Communication Barriers, Environmental/Work Hazards, Anticipated Course of Care, Toxoplasmosis Precations, Use of Any medications, Sexual activity, Exercise, Dental Care, Sauna/Hot tub use, Seat Belt use, Childbirth classes/Hospital facilities, Travel, Indications for Ultrasound and Screening for Aneuploidy; Discussed ROS Const Reports system reviewed and no additional complaints, except as documented Eyes Reports system reviewed and no additional complaints, except as documented ENT Reports system reviewed and no additional complaints, except as documented Card Reports system reviewed and no additional complaints, except as documented Resp Reports system reviewed and no additional complaints, except as documented GI Reports system reviewed and no additional complaints, except as documented, Denies nausea and Denies vomiting Reports system reviewed and no additional complaints, except as documented Musc Reports system reviewed and no additional complaints, except as documented Skin/Breast Reports system reviewed and no additional complaints, except as documented Neuro Yes system reviewed and no additional complaints, except as documented Psych Reports system reviewed and no additional complaints, except as documented Endo Reports system reviewed and no additional complaints, except as documented Giovani/Lymph Reports system reviewed and no additional complaints, except as documented Aller/Immun Reports system reviewed and no additional complaints, except as documented Exam Const General: cooperative, healthy appearing and no acute distress Orientation: alert, awake and oriented x3 Neck Neck: normal visual inspection and full ROM Resp Effort & Inspection: normal respiratory effort, able to speak in complete sentences and symmetric chest movement GI Inspection: normal to inspection Palpation: soft and other Other: gravid Skin General: no rashes or lesions noted Neuro General: patient alert, patient awake and patient oriented x3 Cognition: normal cognition Speech: speech normal Gait: normal gait Motor: muscle tone normal throughout Extrem General: normal to inspection and full ROM Psych Appearance: grossly normal Mental Status: mental status grossly normal Mood: congruent mood Affect: normal affect Speech and Movement: speech and movement normal Attitude: cooperative Thought Process: normal Thought Content: normal Judgment: judgment good Results POC Urinalysis 2 Dip (Clinic) Office Urine Glucose Negative Last Edit by Jody Wiggins on 04/06/25 11:50 Office Urine Protein Negative Last Edit by Jody Wiggins on 04/06/25 11:50 Coding Level of Care Code OB Routine Diagnoses Obesity affecting O99.210 Supervision of high-risk O09.90 12 weeks gestation of Z3A.12 Weeks of gestation: 12 weeks Sinus tachycardia R00.0 Assessment and Plan Assessment and Plan (1) Obesity affecting : Status: Acute Comment: BMI 32.2; HgBA1C ordered w/NOB (2) Supervision of high-risk : Status: Acute Comment: , JERRICA 10/13/25, : Lucía (3) : Status: Acute Qualifiers: Weeks of gestation: 12 weeks Qualified Code(s): Z3A.12 - 12 weeks gestation of Comment: Discussed genetic/carrier testing - undecided (4) Sinus tachycardia: Status: Acute 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 see problem list details for updated plan management information and see below for orders placed at this visit. GA appropriate handout given. 04/06/25 1155 <Electronically signed by Kathy raygoza CNM> Date _ Kathy Morgan CNM Cosigner Signature: Date (if applicable) CC: ~ [facility] Work Phone: Progress note Author Laura Marin [facility] Note Date/Time May 02, 2025 9:59am [facility] [address] [place] [address], [address] [place] [address] OFFICE VISIT Date of Service: 05/02/25 MR#: [id number] Acct: [id number] Name: YUNIEL METZ Rep #: [id number] : 1995 Provider: Dr. 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 Is patient in pain?: No Allergies No Known Allergies Allergy (Verified 05/02/25 09:36) Medications ?Medication ?Instructions ?Recorded ?Confirmed ?Type docosahexaenoic acid 200 mg mg PO 02/23/25 05/02/25 Hi story capsule ( DHA) labetalol 200 mg tablet 100 mg PO BID 05/02/2505/02 History Last Menstrual Period: 01/06/25 Zika: Zika virus screening: Negative : No PFSH PFSH Medical History Sinus tachycardia (08/09/17) Surgical History History of ankle surgery Family History Aunt Brain cancer Grandfather Myocardial infarction Grandfather Diabetes Social History adopted: No household members: spouse number of children: 0 current occupational status: employed current occupation: [employer] 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 ) pets and animals: Yes pets and animals: dog(s) history of recent travel: Yes ( - December 2024) out of state: No out of country: Yes sexually active: Yes Smoking Status: Never smoker second hand exposure: No alcohol intake: current alcohol intake frequency: holidays/special occasions only details: Not while substance use type: does not use well-balanced diet: daily or most days caffeine: No eating out: 1-3 times/week during the past year weight has: remained stable what type of physical activity do you participate in: walking, bicycling and other details: Crossfit frequency: 5-6 times per week duration: 45-60 minutes/day jeramie/restoration: None seatbelt use: always do you feel safe at home: Yes additional social history: : Lucía - 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 OB Visit JERRICA Calculator Estimated Delivery Date Method Current WG Current Estimate 10/13/25 LMP (Certain) 16w 4d Other Estimates 10/12/25 Ultrasound #1 16w 5d Expected Delivery Route/Plan Labor Preferences- CB/BF classes: [] labor support person: [] labor intervention preferences: [] pain management options preferred: [] cut cord/dad catch: [] : [] PP control planned: [] discussed possible routes of delivery and associated risks: [] special requests: [] Specific Issue/Plans Covid status: [] Flu vaccine: [] Tdap vaccine: [] Rhogam: [] LARC form signed: [] Problem list reviewed and updated with the most current plan of care details and appropriate orders placed. Relevant counseling for the gestational age provided. Continue routine care and follow up unless otherwise noted in visit notes/problem list details Initial Weight: 191 lb Date -?-?-?-?-?-?-?-?-?-?-?-?- EGA Weight BP Urine Prot -?-?-?-?-?-?-?-?-?-?-?-?- Glucose FHR FuHt Pres Dilation -?-?-?-?-?-?-?-?-?-?-?-?- Effaced St Visit Note 03/09/25 -?-?-?-?-?-?-?-?-?-?-?-?- 8w 6d 191 lb (+0 oz) 127/80 -?-?-?-?-?-?-?-?-?-?-?-?- 180 -?-?-?-?-?-?-?-?-?-?-?-?- JV- CRL measures 2.5 cm and consistent with LMP. Unsure about NIPT. wants to checke with insurance first. 04/06/25 -?-?-?-?-?-?-?-?-?-?-?-?- 12w 6d 190 lb 9 oz (-7 oz) 117/77 Negative -?-?-?-?-?-?-?-?-?-?-?-?- Negative 174 -?-?-?-?-?-?-?-?-?-?-?-?- KW- no vb/crampi ng. NOB labs today. US ordered. 05/02/25 -?-?-?-?-?-?-?-?-?-?-?-?- 16w 4d 191 lb 8 oz (+8 oz) 115/76 Negative -?-?-?-?-?-?-?-?-?-?-?-?- Negative 165 -?-?-?-?-?-?-?-?-?-?-?-?- JV- patient is e xperiencing more tachycardia. was 140's today. takes 100 bid labetalol. non-medical remedies with squatting and bearing down.Recommend also that she reaches out to her underwear cutter today also. ACOG First Trimester First Trimester: Desire for , Alcohol, Tobacco Cessation, Illicit/Recreational Drug/Substance Use, Intimate Partner Violence, Barriers to care, Unstable Housing, Communication Barriers, Environmental/Work Hazards, Anticipated Course of Care, Toxoplasmosis Precations, Use of Any medications, Sexual activity, Exercise, Dental Care, Sauna/Hot tub use, Seat Belt use, Childbirth classes/Hospital facilities, Travel, Indications for Ultrasound and Screening for Aneuploidy; Discussed Results POC Urinalysis 2 Dip (Clinic) Office Urine Glucose Negative Last Edit by Janett Ortega on 05/02/25 09 :41 Office Urine Protein Negative Last Edit by Janett Ortega on 05/02/25 09 :41 Coding Level of Care Code OB Routine Diagnoses 16 weeks gestation of Z3A.16 Weeks of gestation: 16 weeks Supervision of high-risk O09.90 Obesity affecting O99.210 Sinus tachycardia R00.0 Assessment and Plan Assessment and Plan (1) : Status: Acute Qualifiers: Weeks of gestation: 16 weeks Qualified Code(s): Z3A.16 - 16 weeks gestation of Comment: Discussed genetic/carrier testing - undecided (2) Supervision of high-risk : Status: Acute Comment: PRR, , JERRICA 10/13/25, : Lucía (3) Obesity affecting : Status: Acute Comment: BMI 32.2; HgBA1C ordered w/NOB (4) Sinus tachycardia: Status: Acute 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: Orders POC Urinalysis 2 Dip (Clinic) Today 05/02/25 0959 <Electronically signed by Laura Ruiz DO> Date _ Laura Jiang DO Cosigner Signature: Date (if applicable) CC: ~ [facility] Work Phone: Reason for referral (narrative)No reason for referral information availableSilver Lake Medical Center Work Phone: Summary Purpose Family History No Family History Records Found Relationship Condition Age at Onset Recorded Date/T luis aunt Malignant neoplasm of brain Unknown grandfather Myocardial infarction Unknown grandfather Diabetes mellitus Unknown Advance Directives No Advanced Directives Records FoundNo Advanced Directives Records FoundNo Advanced Directives Records FoundNo Advanced Directives Records FoundNo Advanced Directives Records Found Chief Complaint and Reason for Visit Chief Complaint Admit Date Annual ([facility] [employer]ATION) January 03, 2025 1:45p m PNOB, Comfirm Preg, Vitals February 23 7:55am Reason for Visit Admit Date Encounter for routine gynecological exam ination January 03, 2025 1:45pm Chief Complaint cov LEFT SHOULDER PAIN EORDER-LEFT SHOULDER Reason for Visit Left shoulder pain Chief Complaint Admit Date Annual ([employer]ATION) January 03, 2025 1:45p m Chief Complaint Admit Date Annual ([employer]) January 03, 2025 1:45p m PNOB, Comfirm Preg, Vitals February 23 7:55am *EST* NOB LMP 01/06, JERRICA 10/13March 09, 2025 10:35am Reason for Visit Admit Date Encounter for routine gynecological exam ination January 03, 2025 1:45pm Obesity affecting March 09, 2025 10:35am March 09, 2025 10: 35am Sinus tachycardia March 09, 2025 10: 35am Supervision of high-risk Augus t 2024 10:35am Chief Complaint Admit Date Annual (C[employer]ATION) January 03, 2025 1:45p m PNOB, Comfirm Preg, Vitals February 23 7:55am *EST* NOB LMP 01/06, JERRICA 10/13March 09, 2025 10:35am 13wk ob April 06, 2025 11 :33am Reason for Visit Admit Date Encounter for routine gynecological exam ination January 03, 2025 1:45pm Obesity affecting March 09, 2025 10:35am March 09, 2025 10: 35am Sinus tachycardia March 09, 2025 10: 35am Supervision of high-risk Augus t 2024 10:35am Obesity affecting April 06, 2025 11:33am April 06, 2025 11 :33am Sinus tachycardia April 06, 2025 11 :33am Supervision of high-risk Augus t 2024 11:33am Chief Complaint Admit Date PNOB, Comfirm Preg, Vitals February 23 7:55am *EST* NOB LMP 01/06, JERRICA 10/13March 09, 2025 10:35am 13wk ob April 06, 2025 11 :33am 17wk ob May 02, 2025 9:34am Reason for Visit Admit Date Obesity affecting March 09, 2025 10:35am March 09, 2025 10: 35am Sinus tachycardia March 09, 2025 10: 35am Supervision of high-risk Augus t 2024 10:35am Obesity affecting April 06, 2025 11:33am April 06, 2025 11 :33am Sinus tachycardia April 06, 2025 11 :33am Supervision of high-risk Augus t 2024 11:33am Obesity affecting May 022024 9:34am May 02, 2025 9:34am Sinus tachycardia May 02, 2025 9:34am Supervision of high-risk [place] issa 2024 9:34am Additional Source Comments INFORMATION SOURCE (unrecogn ized section and content) DATE CREATED AUTHOR 01/31/2018 [facility] DATE CREATED AUTHOR AUTHOR'S ORGANIZ ATION 02/02/2018 [facility] DATE CREATED AUTHOR AUTHOR'S ORGANIZ ATION 07/07/2019 [facility] ([place] DATE CREATED AUTHOR AUTHOR'S ORGANIZ ATION 10/11/2024 [facility] DATE CREATED AUTHOR AUTHOR'S ORGANIZ ATION 06/12/2025 [facility] Care Teams (unrecognized sec tion and content) Team Status: Inactive Member Role Status Dates Dr. Renetta Ortega DO Attending Provider Active Team Status: Active Member Role Status Dates Dr. Sandip Aceves MD Primary Care Provider Active Team Status: Inactive Member Role Status Dates Dr. 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 Sandip Aceves MD Primary Care Provider, Referring Provider Active Rakesh NICKERSON, PA Attending Provider Active Team Status: Inactive Member Role Status Dates Dr. Sandip Aceves MD Primary Care Provider, Referring Provider Active CORRINA Cruz Attending Provider Active Team Status: Inactive Member Role Status Dates Dr. 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 Sandip Aceves MD Primary Care Provider Active Start: January 03, 2025 End: January 03, 2025 Dr. Sandip Aceves MD Referring Provider Active Start: January 03, 2025 End: January 03, 2025 CORRINA Hu Attending Provider Active Start: January 03, 2025 End: January 03, 2025 Team Status: Active Member Role/Relationship Status Dates Dr. Sandip Aceves MD Primary Care Provider Active Team Status: Inactive Member Role/Relationship Status Dates Dr. Sandip Aceves MD Primary Care Provider Active Start: January 03, 2025 End: January 03, 2025 Dr. Sandip Aceves MD Referring Provider Active Start: January 03, 2025 End: January 03, 2025 CORRINA Hu Attending Provider Active Start: January 03, 2025 End: January 03, 2025 Team Status: Inactive Member Role/Relationship Status Dates Dr. Sandip Aceves MD Primary Care Provider Active Start: February 23, 2025 End: February 23, 2025 Dr. Sandip Aceves MD Referring Provider Active Start: February 23, 2025 End: February 23, 2025 Dr. Laura Jiang DO Attending Provider Activ e Start: February 23, 2025 End: February 23, 2025 Team Status: Inactive Member Role/Relationship Status Dates Dr. Sandip Aceves MD Primary Care Provider Active Start: March 09, 2025 End: March 09, 2025 Dr. Sandip Aceves MD Referring Provider Active Start: March 09, 2025 End: March 09, 2025 Dr. Laura Jiang DO Attending Provider Activ e Start: March 09, 2025 End: March 09, 2025 Team Status: Inactive Member Role/Relationship Status Dates Dr. Sandip Aceves MD Primary Care Provider Active Start: March 09, 2025 End: March 09, 2025 Dr. Laura Jiang DO Attending Provider Activ e Start: March 09, 2025 End: March 09, 2025 Dr. Laura Jiang DO Referring Provider Activ e Start: March 09, 2025 End: March 09, 2025 Team Status: Inactive Member Role/Relationship Status Dates Dr. Sandip Aceves MD Primary Care Provider Active Start: April 06, 2025 End: April 06, 2025 Dr. Sandip Aceves MD Referring Provider Active Start: April 06, 2025 End: April 06, 2025 Kathy Morgan CNM Attending Provider Active S tart: April 06, 2025 End: April 06, 2025 Team Status: Active Member Role/Relationship Status Dates Dr. Sandip Aceves MD Primary Care Provider Active Start: April 06, 2025 Kathy Morgan CNM Attending Provider Active S tart: April 06, 2025 Team Status: Inactive Member Role/Relationship Status Dates Dr. Sandip Aceves MD Primary Care Provider Active Start: April 06, 2025 End: April 06, 2025 Ktahy Morgan CNM Attending Provider Active S tart: April 06, 2025 End: April 06, 2025 Team Status: Active Member Role/Relationship Status Dates Dr. Sandip Aceves MD Primary care physician Active Team Status: Inactive Member Role/Relationship Status Dates Dr. Sandip Aceves MD Primary care physician Active Start: February 23, 2025 End: February 23, 2025 Dr. Sandip Aceves MD Referring Provider Active Start: February 23, 2025 End: February 23, 2025 Dr. Laura Jiang DO Attending physician Acti ve Start: February 23, 2025 End: February 23, 2025 Team Status: Inactive Member Role/Relationship Status Dates Dr. Sandip Aceves MD Primary care physician Active Start: March 09, 2025 End: March 09, 2025 Dr. Sandip Aceves MD Referring Provider Active Start: March 09, 2025 End: March 09, 2025 Dr. Laura Jiang DO Attending physician Acti ve Start: March 09, 2025 End: March 09, 2025 Team Status: Inactive Member Role/Relationship Status Dates Dr. Sandip Aceves MD Primary care physician Active Start: March 09, 2025 End: March 09, 2025 Dr. Lauar Jiang DO Attending physician Acti ve Start: March 09, 2025 End: March 09, 2025 Dr. Laura Jiang DO Referring Provider Activ e Start: March 09, 2025 End: March 09, 2025 Team Status: Inactive Member Role/Relationship Status Dates Dr. Sandip Aceves MD Primary care physician Active Start: April 06, 2025 End: April 06, 2025 Dr. Sandip Aceves MD Referring Provider Active Start: April 06, 2025 End: April 06, 2025 Kathy Morgan CNM Attending physician Active Start: April 06, 2025 End: April 06, 2025 Team Status: Inactive Member Role/Relationship Status Dates Dr. Sandip Aceves MD Primary care physician Active Start: April 06, 2025 End: April 06, 2025 Kathy Morgan CNM Attending physician Active Start: April 06, 2025 End: April 06, 2025 Team Status: Inactive Member Role/Relationship Status Dates Dr. Sandip Aceves MD Primary care physician Active Start: May 02, 2025 End: May 02, 2025 Dr. Sandip Aceves MD Referring Provider Active Start: May 02, 2025 End: May 02, 2025 Dr. Laura Jiang DO Attending physician Active Start: April End: May 02, 2025 Goals (unrecognized section and content) Type Care Experience Labor Preferences-CB /BF classes: []labor support person: []labor intervention preferences: []pain management options preferred: []cut cord/dad catch: []: []PP control planned: []discussed possible routes of delivery and associated risks: []special requests: [] Reason for Visit (unrecogniz ed section and content) Reason Comments 1 Year Follow-up Rapid Heart Rate Reason Onset Date Comments Med Refill 09/30/2023 Reason Onset Date Comments Med Refill 08/11/2024 Reason Comments Follow-up Other Inappropriate sinus tachycardia FOR RECORDS PERTAINING TO PATIENTS WHO ARE OR HAVE BEEN ENROLLED IN A CHEMICAL DEPENDENCY/SUBSTANCEABUSE PROGRAM, SOME INFORMATION MAY BE OMITTED. This clinical summary was aggregated from multiple sources. Caution should be exercised in using it in the provision of clinical care. This summary normalizes information from multiple sources, and as a consequence, information in this document may materially change the coding, format and clinical context of patient data. In addition, data may be omitted in some cases. CLINICAL DECISIONS SHOULD BE BASED ON THE PRIMARY CLINICAL RECORDS. [facility]. provides no warranty or guarantee of the accuracy or completeness of information in this document.
[2025-07-27 10:19] LABS: Glucose Challenge Gest 1H 50g 131 mg/dL (70-140); HIV Nonreactive (Nonreactive); Syphilis Antibodies Nonreactive (Nonreactive)
== END | disposition home or self-care (01) ==
LOC: LAB 09:04
PROVIDERS: PCP Family Medicine; Referring Provider Nurse Practitioner Women's Health; Visit Provider Nurse Practitioner Women's Health
DX: Z13.1 Encounter for screening for diabetes mellitus (principal); O09.90 Supervision of high risk pregnancy, unspecified, unspecified trimester; Z3A.00 Weeks of gestation of pregnancy not specified
CPT/HCPCS: 36415; 82950; 85025; 86703; 86780